=== PATIENT | male | born 1965 | race Caucasian/White ===

== ENCOUNTER 2021-01-16 08:19 | Inpatient (IN) ==
[2021-01-16] MEDS ORDERED: MoRPHine SULFATE 4 MG/ML 1 ML CARP\\VIAL IV STA ×2 (08:38→12:32)
[2021-01-16] MEDS ORDERED: ONDANSETRON INJ 2 MG/ML 2 ML VIAL IV STA (08:38)
--- NOTE | 2021-01-16 08:46 | Emergency Department Note ---
History of Present Illness General Chief complaint: Rib Injury/Pain Stated complaint: RIB PAIN Time Seen by Provider: 01/16/21 08:28 History of Present Illness Maximum Pain Intensity: 7 This is a 55-year-old male that presents to the emergency department via private vehicle accompanied by with complaints of "right-sided rib pain". The patient for the past 3 weeks has been experiencing right sided chest wall/rib pain that is worse with a deep breath. At times it radiates to his back. He denies any known trauma or injury. No chest pain. He denies any fevers, chills, history of SD, history of PE. He notes an outpatient chest x-ray was normal. He did note also a recent tick bite and was given p.o. doxy 2 tablets x 1 and this was removed about 2 weeks ago. Patient denies any history of this. Current pain 03/11. Patient has been using OTC analgesic without relief. Home Medications Medication Instructions Recorded Confirmed Type acetaminophen [Tylenol] 325 mg PO QID PRN 01/16/21 01/16/21 History aspirin 81 mg PO DAILY 01/16/21 01/16/21 History citalopram 20 mg PO DAILY 01/16/21 01/16/21 History gemfibrozil 600 mg PO DAILY 01/16/21 01/16/21 History ibuprofen 200 mg PO Q6H PRN 01/16/21 01/16/21 History lisinopril-hydrochlorothiazide 1 tab PO DAILY 01/16/21 01/16/21 History Allergies Allergy/AdvReac Type Severity Reaction Status Date / Time No Known Allergies Allergy Unverified 01/16/21 09:07 Past Med/Surg History Medical History HLD (hyperlipidemia) HTN (hypertension) Surgical History No pertinent past surgical history Family History Father Heart disease Social History Smoking Status: Former smoker Tobacco Type: Smokeless Tobacco (Dip or Chew) Hx Alcohol Use: No Feels Safe at Home: Yes Review of Systems A total of 10 systems reviewed and were otherwise negative Physical Exam Vital Signs Vital Signs - 24 hr 01/16/21 08:24 01/16/21 09:19 01/16/21 11:29 Temperature 36.2 C L Temperature Source Skin Pulse Rate 75 Pulse Rate [Finger] 78 81 Respiratory Rate 18 18 20 Respiratory Effort / Characteristics Non-Labored Spontaneous Respiratory Depth Normal Blood Pressure 167/87 H Blood Pressure [Left Arm] 149/75 H 140/73 Blood Pressure Mean 113 Blood Pressure Mean [Left Arm] 99 95 Blood Pressure Position Sitting Pulse Oximetry 98 97 96 Oxygen Delivery Method Room Air Room Air Room Air Sepsis Recent Fever Within 48 Hours No Sepsis New/Unexplained Change in Mental Status N/A Sepsis Action Taken by Nursing No Action Required 01/16/21 12:40 01/16/21 13:13 01/16/21 14:05 Temperature Temperature Source Pulse Rate Pulse Rate [Finger] 73 75 86 Respiratory Rate 20 20 20 Respiratory Effort / Characteristics Respiratory Depth Blood Pressure Blood Pressure [Left Arm] 161/94 H 147/86 H 141/98 H Blood Pressure Mean Blood Pressure Mean [Left Arm] 116 106 112 Blood Pressure Position Pulse Oximetry 96 97 95 Oxygen Delivery Method Room Air Room Air Room Air Sepsis Recent Fever Within 48 Hours Sepsis New/Unexplained Change in Mental Status Sepsis Action Taken by Nursing 01/16/21 14:58 Temperature Temperature Source Pulse Rate Pulse Rate [Finger] 72 Respiratory Rate 18 Respiratory Effort / Characteristics Respiratory Depth Blood Pressure Blood Pressure [Left Arm] 130/69 Blood Pressure Mean Blood Pressure Mean [Left Arm] 89 Blood Pressure Position Pulse Oximetry 94 Oxygen Delivery Method Room Air Sepsis Recent Fever Within 48 Hours Sepsis New/Unexplained Change in Mental Status Sepsis Action Taken by Nursing VITAL SIGNS - Vital signs and nursing notes were reviewed. Hypertensive, otherwise stable. GENERAL -55-year-old male appearing his stated age. Communicates well with provider and answers questions appropriately. SKIN - Gross examination of the entire body surface demonstrates no bruising, deformity, meningeal or petechial rash. No herpetic lesion. HEAD - Normocephalic, Atraumatic. EYES - PERRL with EOMI bilaterally. Without subconjunctival hemorrhage. Palpebral conjunctiva pink and moist with no injection. EARS - No deformities of external structures noted on gross examination bilaterally. No hemotympanum present. No tympanic perforation noted. Handle of malleus, umbo, cone of light, pars tensa/flaccid all easily visualized. NOSE - Midline and without cyanosis. No epistaxis or clear watery discharge n oted. Septum midline without deviation. No septal hematoma noted. No overlying ecchymosis noted. MOUTH/OROPHARYNX - Without perioral cyanosis. Tongue midline with equal elevation of palate bilaterally. No blood noted in the oropharynx. No tonsillar hypertrophy, erythema, or exudates noted. No dental fractures noted. NECK - No C-spine tenderness. No nuchal rigidity. No meningismus. LUNGS - Chest wall symmetric without accessory muscle use, intercostals retractions, or central cyanosis. No flail chest or depressed fractures noted. Normal vesicular breath sounds CTA B/L. No wheezes, rales, or rhonchi appreciated. CARDIAC - RRR with S1/S2. No murmur, rubs, or gallops appreciated. ABDOMEN - Abdominal contour normal and without pulsations or visible masses. BS normoactive all four quadrants. No rebound tenderness or guarding noted. Negative [place]'s or Staples Naidu's Signs. No tenderness, palpable masses, hepatosplenomegaly, or ascites noted. EXTREMITIES - No gross deformities noted of the extremities. +5/5 strength noted in UE/LE bilaterally. NEUROLOGIC - Cranial nerves II through XII grossly intact. Sensory intact to light touch throughout. PSYCH - A&Ox3 and cooperates fully with examiner. Pt is very pleasant and interacts well with examiner. Course Administered Medications Discontinued Medications Ioversol (Optiray 350 500ml) 110 ml IV ONCE ONE Stop: 01/16/21 10:16 Last Admin: 01/16/21 10:15 Dose: 110 ml Documented by: [id number] Morphine Sulfate (Morphine Sulfate 4 Mg/Ml 1 Ml Carp\\Vial) 4 mg IV NOW STA Stop: 01/16/21 08:39 Last Admin: 01/16/21 09:16 Dose: 4 mg Documented by: [id number] Morphine Sulfate (Morphine Sulfate 4 Mg/Ml 1 Ml Carp\\Vial) 4 mg IV NOW STA Stop: 01/16/21 12:33 Last Admin: 01/16/21 14:41 Dose: Not Given Documented by: [id number] Ondansetron HCl (Ondansetron Inj 2 Mg/Ml 2 Ml Vial) 4 mg IV NOW STA Stop: 01/16/21 08:39 Last Admin: 01/16/21 09:16 Dose: 4 mg Documented by: [id number] Oxycodone HCl (Oxycodone Hcl Ir 5 Mg Tab (Immediate Release)) 5 mg PO NOW STA Stop: 01/16/21 13:07 Last Admin: 01/16/21 14:41 Dose: Not Given Documented by: [id number] Oxycodone HCl (Oxycodone Hcl Ir 5 Mg Tab (Immediate Release)) Confirm Administered Dose 5 mg .ROUTE .STK-MED ONE Stop: 01/16/21 13:10 Last Admin: 01/16/21 13:11 Dose: 5 mg Documented by: [id number] Medical Decision Making Laboratory Data Result diagrams: 01/16/21 09:09 01/16/21 09:09 Lab Results 01/16/21 01/16/21 01/16/21 Range/Units 09:09 09:09 09:09 WBC 6.81 (4.8-10.8) K/uL RBC 4.62 L (4.7-6.1) M/uL Hgb 12.5 L (14.0-18.0) g/dL Hct 37.9 L (42-52) % MCV 82.0 (80-100) fL MCH 27.1 (25-34) pg MCHC 33.0 (32-36) g/dL RDW Std Deviation 42.8 (36.4-46.3) fL RDW Coeff of Rm 14.4 (11.5-14.5) % Plt Count 252 (130-400) K/uL MPV 9.1 (7.4-10.4) fL Immature Gran % (Auto) 0.3 % Neut % (Auto) 68.8 % Lymph % (Auto) 18.1 % [place] % (Auto) 10.4 % Eos % (Auto) 2.1 % Baso % (Auto) 0.3 % Neut # (Auto) 4.69 (1.4-6.5) K/uL Lymph # (Auto) 1.23 (1.2-3.4) K/uL [place] # (Auto) 0.71 H (0.11-0.59) K/uL Eos # (Auto) 0.14 (0-0.5) K/uL Baso # (Auto) 0.02 (0-0.2) K/uL Immature Gran # (Auto) 0.02 (0.00-0.02) K/uL Sodium 140 (136-145) mmol/L Potassium 4.0 (3.5-5.1) mmol/L Chloride 107 (98-107) mmol/L Carbon Dioxide 26 (21-32) mmol/L Anion Gap 7.0 (3-11) BUN 18 (7-18) mg/dl Creatinine 1.04 (0.6-1.4) mg/dl Est Cr Clr Drug Dosing 92.3 ml/min Est GFR ( Amer) 91.9 ml/min Est GFR (Non-Af Amer) 79.3 ml/min BUN/Creatinine Ratio 17.3 (10-20) Glucose 115 H (70-99) mg/dl Calcium 9.5 (8.5-10.1) mg/dl Magnesium 1.9 (1.8-2.4) mg/dl Total Bilirubin 0.3 (0.2-1) mg/dl AST 13 L (15-37) U/L ALT 16 (12-78) U/L Alkaline Phosphatase 134 H (45-117) U/L Troponin I < 0.015 (0-0.045) ng/ml Total Protein 7.1 (6.4-8.2) gm/dl Albumin 3.1 L (3.4-5.0) gm/dl Globulin 4.0 (2.5-4.0) gm/dl Albumin/Globulin Ratio 0.8 L (0.9-2) Lipase 132 (73-393) U/L Lyme Disease IgG Ab Negative (Negative) Lyme Disease IgM Ab Negative (Negative) COVID-19 Eval Order SARS-CoV-2 (PCR) (Negative) 01/16/21 01/16/21 Range/Units 12:30 12:30 WBC (4.8-10.8) K/uL RBC (4.7-6.1) M/uL Hgb (14.0-18.0) g/dL Hct (42-52) % MCV (80-100) fL MCH (25-34) pg MCHC (32-36) g/dL RDW Std Deviation (36.4-46.3) fL RDW Coeff of Rm (11.5-14.5) % Plt Count (130-400) K/uL MPV (7.4-10.4) fL Immature Gran % (Auto) % Neut % (Auto) % Lymph % (Auto) % [place] % (Auto) % Eos % (Auto) % Baso % (Auto) % Neut # (Auto) (1.4-6.5) K/uL Lymph # (Auto) (1.2-3.4) K/uL [place] # (Auto) (0.11-0.59) K/uL Eos # (Auto) (0-0.5) K/uL Baso # (Auto) (0-0.2) K/uL Immature Gran # (Auto) (0.00-0.02) K/uL Sodium (136-145) mmol/L Potassium (3.5-5.1) mmol/L Chloride (98-107) mmol/L Carbon Dioxide (21-32) mmol/L Anion Gap (3-11) BUN (7-18) mg/dl Creatinine (0.6-1.4) mg/dl Est Cr Clr Drug Dosing ml/min Est GFR ( Amer) ml/min Est GFR (Non-Af Amer) ml/min BUN/Creatinine Ratio (10-20) Glucose (70-99) mg/dl Calcium (8.5-10.1) mg/dl Magnesium (1.8-2.4) mg/dl Total Bilirubin (0.2-1) mg/dl AST (15-37) U/L ALT (12-78) U/L Alkaline Phosphatase (45-117) U/L Troponin I (0-0.045) ng/ml Total Protein (6.4-8.2) gm/dl Albumin (3.4-5.0) gm/dl Globulin (2.5-4.0) gm/dl Albumin/Globulin Ratio (0.9-2) Lipase (73-393) U/L Lyme Disease IgG Ab (Negative) Lyme Disease IgM Ab (Negative) COVID-19 Eval Order Covid19 at [facility] SARS-CoV-2 (PCR) NEGATIVE (Negative) Imaging Data Radiologist's Impression: Abdomen/Pelvis CT 01/16/21 08:39 CT SCAN OF THE ABDOMEN AND PELVIS WITH IV CONTRAST CLINICAL HISTORY: Right upper quadrant abdominal pain COMPARISON STUDY: No priors. TECHNIQUE: Following the IV administration of 110 cc of Optiray 350, CT scan of the abdomen and pelvis is performed from the lung bases to the proximal femora. Images are reviewed in the axial, sagittal, and coronal planes. IV contrast was administered without complication. A dose lowering technique was utilized adhering to the principles of ALARA. FINDINGS: Lung bases: The heart is normal in size and without pericardial effusion. The lung bases are clear noting dependent atelectasis. A small hiatal hernia is noted. Mildly enlarged lymph nodes at the esophageal hiatus measure up to 1.0 cm. Liver: The contrast-enhanced liver is top normal in size. The liver demonstrates diffusely diminished attenuation consistent with hepatic steatosis. There is no intrahepatic biliary ductal dilatation. The hepatic veins and portal veins are patent. There is a 2.7 cm lesion in the left lobe of liver seen on image #71. This demonstrates foci of peripheral discontinuous nodular enhancement, and although incompletely characterized the appearance favors a hemangioma. Gallbladder: There are numerous calcified gallstones without CT evidence of acute cholecystitis. Spleen: The spleen is mildly enlarged measuring 14.4 cm in length. Pancreas: Unremarkable. Adrenal glands: Unremarkable. Kidneys: The contrast enhanced kidneys are normal in size and without hydronephrosis. The kidneys enhance symmetrically. Abdominal vasculature: The abdominal aorta is normal in course and caliber noting moderate atherosclerotic calcification. Stomach and bowel: The gastric wall appears thickened and featureless. Small lymph nodes along the greater curvature of the stomach measure up to 9 mm. There is mild colonic diverticulosis without CT evidence of acute diverticulitis. No bowel obstruction is seen. The appendix is well-visualized and normal. Peritoneum: There is nonspecific soft tissue infiltration in the upper abdomen and along the mesentery with trace fluid. No intraperitoneal free air is identified. Trace free fluid is seen in the pelvis. There is a fat-containing umbilical hernia. Lymphadenopathy: There are enlarged upper abdominal lymph nodes. A celiac node on image #79 measures 2.3 x 1.2 cm. An enlarged left periaortic node on image #170 measures 1.8 x 1.3 cm. No additional enlarged retroperitoneal lymph nodes are identified. Pelvic viscera: The bladder, prostate, and seminal vesicles are normal as visualized. Skeletal structures: There is an osteolytic lesion identified in the body of T11 with an inferior endplate compression deformity. There is a subtle destructive lesion within the right lateral 8th rib with associated pathologic fracture. No additional destructive bony lesions are clearly identified. IMPRESSION: 1. Findings are consistent with metastatic disease. 2. There are destructive bony lesions within the right lateral 8th rib and body of T11 with associated pathologic fractures. 3. There are pathologically enlarged lymph nodes in the upper abdomen, inferior mediastinum, and left periaortic region. 4. The gastric wall appears thickened and featureless. Although not well evaluated by CT, a primary gastric neoplasm is a strong differential consideration. Correlate with endoscopy. 5. A 2.7 cm left hepatic lobe lesion is incompletely characterized but favors a hemangioma. This could be further assessed with a nonemergent dedicated CT or MRI of the liver. 6. Cholelithiasis. 7. Hepatic steatosis. 8. Additional findings as above. ACT 112: Positive. There are findings on this exam that require communication between the performing entity and the patient following Patient Test Result Information Act ([place] Act 112) guidelines. Electronically signed by: Chas Champion M.D. 01/16/2021 10:45 AM Chest CTA 01/16/21 08:39 CT ANGIOGRAPHY OF THE CHEST, PULMONARY EMBOLUS PROTOCOL CLINICAL HISTORY: R lateral/anterior rib pain/RUQ pain into back COMPARISON STUDY: Chest radiograph January 21, 2013. TECHNIQUE: Following IV administration of 110 mL of Optiray, helical axial images of the chest were obtained utilizing the pulmonary embolus protocol. Maximal intensity projections and sagittal and coronal reformats were viewed on an independent 3D workstation. IV contrast was administered without complication. Automated exposure control was utilized for the study. A dose lowering technique was utilized adhering to the principles of ALARA. CT DOSE: 1518.90 mGycm FINDINGS: No pulmonary emboli are identified. There is no thoracic aortic dissection. Mild cardiomegaly is noted. There is no pericardial effusion. Note is made of a few prominent asymmetrically enlarged right supraclavicular lymph nodes that measure up to 9 mm in short axis diameter. There is mild mediastinal and bilateral hilar lymphadenopathy. Numerous mildly enlarged lymph nodes are noted. Index left hilar node measures 2.4 x 1.5 cm. Index subcarinal node measures 1.6 x 1.6 cm. Index right hilar node measures 1.8 x 1.5 cm. A few perifissural right lung nodules measure up to 6 mm. These are likely benign. Th ere is no pneumothorax or pleural effusion. Note is made of a lytic lesion within the T11 vertebral body that measures 2 cm. There is associated pathologic fracture involving the inferior endplate of this vertebral body. No retropulsion. No epidural extension is identified. Note is also made of subtle lucency and sclerosis within the lateral right eighth rib with suspected pathologic fracture. The abdomen and pelvis will be reported separately. IMPRESSION: 1. No pulmonary emboli identified. 2. Multiple mildly enlarged mediastinal and bilateral hilar lymph nodes. In addition, 2 cm lytic lesion within T11 with pathologic fracture and a suspected right eighth rib lesion with pathologic fracture. These findings are highly suggestive of a neoplastic process and favor metastatic disease. ACT 112: Positive. There are findings on this exam that require communication between the performing entity and the patient following Patient Test Result Information Act ([place] Act 112) guidelines. Electronically signed by: Bobo Crespo M.D. 01/16/2021 10:37 AM MDM Narrative Patient was seen and evaluated as above in room B03. Review was performed of nursing notes and vital signs. I did review pertinent previous visits and patient history. After obtaining a thorough history and physical examination the above work up was performed. Patient presents to us today with atraumatic right anterior/lateral rib pain that at times in the right upper quadrant as well as radiates to the back. Patient does appear to be in pain on exam. Current pain 7/10. This is not reproducible on my exam. Options of care were discussed with the patient. IV access was established. Labs were drawn. No leukocytosis. There is anemia with hemoglobin at 12.5. No emergent metabolic disturbance. Troponin negative. Lyme testing negative. EKG was obtained and reveals normal sinus rhythm rate of [address] elevation. QTc 425. QRS 86. Imaging was obtained of the chest, abdomen and pelvis given presentation, level of pain and persistence of symptoms. Results as above. Unfortunately there appears to be findings consistent with metastatic disease and pathologic fractures. I did discuss these findings with the patient and at bedside. I do believe that further evaluation and management inpatient setting would be reasonable noting his level of pain paired with decreased appetite and findings here today. Case discussed with the hospitalist. I also spoke with Ebonie ROWE CRNP. Patient will be tentatively scheduled for an EGD tomorrow. He will be n.p.o. after midnight. IV analgesics were given. Please refer to further documentation regarding his stay. Case was discussed with the attending physician, and we discussed options of care with the patient at bedside. GCS: 15 In the evaluation and treatment of this patient the following differential diagnoses were entertained: Fracture, dislocation, subluxation, contusion, acute cholecystitis, cholangitis, malignancy, among others. Impression & Plan Right-sided chest wall pain, Pathologic rib fracture, Pathologic thoracic fracture, Rib pain on right side, Back pain, Abnormal CT scan, chest, Abnormal CT of the abdomen Discharge Plan Visit Data Chief Complaint: Rib Injury/Pain Stated Complaint: RIB PAIN ED Provider: Dave Holder ED Midlevel Provider: Polo Levy Discharge Problem: Right-sided chest wall pain, Pathologic rib fracture, Pathologic thoracic fracture, Rib pain on right side, Back pain, Abnormal CT scan, chest, Abnormal CT of the abdomen Patient Disposition: Admitted As Inpatient Condition: Good Forms Stand Alone Forms: [facility], [facility] Emergency Department, Important Visit Information Prescriptions Prescriptions: No Action acetaminophen [Tylenol] 325 mg Tablet 325 mg PO QID PRN (Reason: Pain) RF: 0 aspirin 81 mg Tablet,Delayed Release (Dr/Ec) 81 mg PO DAILY RF: 0 citalopram 20 mg tablet 20 mg PO DAILY RF: 0 ibuprofen 200 mg Tablet 200 mg PO Q6H PRN (Reason: Pain) RF: 0 lisinopril-hydrochlorothiazide 20-25 mg tablet 1 tab PO DAILY RF: 0 gemfibrozil 600 mg Tablet 600 mg PO DAILY RF: 0 Referrals Referrals: Aristeo Spencer MD [Primary Care Provider] -
[2021-01-16 09:20] LABS: Basophils # (auto) 0.02 K/uL (0-0.2); Basophils % (auto) 0.3 %; Eosinophils # (auto) 0.14 K/uL (0-0.5); Eosinophils % (auto) 2.1 %; Hematocrit (blood only) 37.9 % (42-52); Hemoglobin 12.5 g/dL (14.0-18.0); Immature Granulocytes # (auto) 0.02 K/uL (0.00-0.02); Immature Granulocytes % (auto) 0.3 %; Lymphocytes # (auto) 1.23 K/uL (1.2-3.4); Lymphocytes % (auto) 18.1 %; Mean Corpuscular Hemoglobin 27.1 pg (25-34); Mean Platelet Volume 9.1 fL (7.4-10.4); Monocytes # (auto) 0.71 K/uL (0.11-0.59); Monocytes % (auto) 10.4 %; Neutrophils # (auto) 4.69 K/uL (1.4-6.5); Neutrophils % (auto) 68.8 %; Platelet Count 252 K/uL (130-400); RDW Coefficient of Variation 14.4 % (11.5-14.5); RDW Standard Deviation 42.8 fL (36.4-46.3); Red Blood Count 4.62 M/uL (4.7-6.1); White Blood Count 6.81 K/uL (4.8-10.8)
[2021-01-16 09:44] LABS: Albumin Level 3.1 gm/dl (3.4-5.0); Aspartate Aminotransferase 13 U/L (15-37); BUN Creatinine Ratio 17.3 (10-20); Blood Urea Nitrogen 18 mg/dl (7-18); Calcium 9.5 mg/dl (8.5-10.1); Carbon Dioxide 26 mmol/L (21-32); Chloride 107 mmol/L (98-107); Creatinine Clr Calc Pharmacy 92.3 ml/min; Est GFR (African American) 91.9 ml/min; Est GFR (Non-African American) 79.3 ml/min; Glucose 115 mg/dl (70-99); Lipase 132 U/L (73-393); Magnesium 1.9 mg/dl (1.8-2.4); Sodium 140 mmol/L (136-145)
[2021-01-16 09:49] LABS: Alanine Aminotransferase 16 U/L (12-78); Albumin Globulin Ratio 0.8 (0.9-2); Alkaline Phosphatase 134 U/L (45-117); Bilirubin,Total 0.3 mg/dl (0.2-1); Total Protein 7.1 gm/dl (6.4-8.2); Troponin I < 0.015 ng/ml (0-0.045)
[2021-01-16] MEDS ORDERED: OPTIRAY 350 500ml IV ONE (10:15)
[2021-01-16 10:26] LABS: Lyme Ab IgG w/WB Rflx Negative (Negative)
[2021-01-16 10:27] LABS: Lyme Ab IgM w/WB Rflx Negative (Negative)
--- NOTE | 2021-01-16 10:38 | CT Scan Report ---
CT ANGIOGRAPHY OF THE CHEST, PULMONARY EMBOLUS PROTOCOL CLINICAL HISTORY: R lateral/anterior rib pain/RUQ pain into back COMPARISON STUDY: Chest radiograph January 21, 2013. TECHNIQUE: Following IV administration of 110 mL of Optiray, helical axial images of the chest were o btained utilizing the pulmonary embolus protocol. Maximal intensity projections and sagittal and cor onal reformats were viewed on an independent 3D workstation. IV contrast was administered without co mplication. Automated exposure control was utilized for the study. A dose lowering technique was ut ilized adhering to the principles of ALARA. CT DOSE: 1518.90 mGycm FINDINGS: No pulmonary emboli are identified. There is no thoracic aortic dissection. Mild cardiomeg dana is noted. There is no pericardial effusion. Note is made of a few prominent asymmetrically enlarg ed right supraclavicular lymph nodes that measure up to 9 mm in short axis diameter. There is mild me diastinal and bilateral hilar lymphadenopathy. Numerous mildly enlarged lymph nodes are noted. Index left hilar node measures 2.4 x 1.5 cm. Index subcarinal node measures 1.6 x 1.6 cm. Index right hilar node measures 1.8 x 1.5 cm. A few perifissural right lung nodules measure up to 6 mm. These are like ly benign. There is no pneumothorax or pleural effusion. Note is made of a lytic lesion within the T1 1 vertebral body that measures 2 cm. There is associated pathologic fracture involving the inferior e ndplate of this vertebral body. No retropulsion. No epidural extension is identified. Note is also ma de of subtle lucency and sclerosis within the lateral right eighth rib with suspected pathologic frac ture. The abdomen and pelvis will be reported separately. IMPRESSION: 1. No pulmonary emboli identified. 2. Multiple mildly enlarged mediastinal and bilateral hilar lymph nodes. In addition, 2 cm lytic les ion within T11 with pathologic fracture and a suspected right eighth rib lesion with pathologic fract ure. These findings are highly suggestive of a neoplastic process and favor metastatic disease. ACT 112: Positive. There are findings on this exam that require communication between the performing entity and the patient following Patient Test Result Information Act ([place] Act 112) guidelines. Electronically signed by: Bobo Crespo M.D. 01/16/2021 10:37 AM
--- NOTE | 2021-01-16 10:47 | CT Scan Report ---
CT SCAN OF THE ABDOMEN AND PELVIS WITH IV CONTRAST CLINICAL HISTORY: Right upper quadrant abdominal pain COMPARISON STUDY: No priors. TECHNIQUE: Following the IV administration of 110 cc of Optiray 350, CT scan of the abdomen and pelv is is performed from the lung bases to the proximal femora. Images are reviewed in the axial, sagitta l, and coronal planes. IV contrast was administered without complication. A dose lowering technique w as utilized adhering to the principles of ALARA. FINDINGS: Lung bases: The heart is normal in size and without pericardial effusion. The lung bases are clear no ting dependent atelectasis. A small hiatal hernia is noted. Mildly enlarged lymph nodes at the esopha geal hiatus measure up to 1.0 cm. Liver: The contrast-enhanced liver is top normal in size. The liver demonstrates diffusely diminished attenuation consistent with hepatic steatosis. There is no intrahepatic biliary ductal dilatation. T he hepatic veins and portal veins are patent. There is a 2.7 cm lesion in the left lobe of liver seen on image #71. This demonstrates foci of peripheral discontinuous nodular enhancement, and although i ncompletely characterized the appearance favors a hemangioma. Gallbladder: There are numerous calcified gallstones without CT evidence of acute cholecystitis. Spleen: The spleen is mildly enlarged measuring 14.4 cm in length. Pancreas: Unremarkable. Adrenal glands: Unremarkable. Kidneys: The contrast enhanced kidneys are normal in size and without hydronephrosis. The kidneys enh ance symmetrically. Abdominal vasculature: The abdominal aorta is normal in course and caliber noting moderate atheroscle rotic calcification. Stomach and bowel: The gastric wall appears thickened and featureless. Small lymph nodes along the gr eater curvature of the stomach measure up to 9 mm. There is mild colonic diverticulosis without CT ev idence of acute diverticulitis. No bowel obstruction is seen. The appendix is well-visualized and no rmal. Peritoneum: There is nonspecific soft tissue infiltration in the upper abdomen and along the mesenter y with trace fluid. No intraperitoneal free air is identified. Trace free fluid is seen in the pelvis . There is a fat-containing umbilical hernia. Lymphadenopathy: There are enlarged upper abdominal lymph nodes. A celiac node on image #79 measures 2.3 x 1.2 cm. An enlarged left periaortic node on image #170 measures 1.8 x 1.3 cm. No additional enl arged retroperitoneal lymph nodes are identified. Pelvic viscera: The bladder, prostate, and seminal vesicles are normal as visualized. Skeletal structures: There is an osteolytic lesion identified in the body of T11 with an inferior end plate compression deformity. There is a subtle destructive lesion within the right lateral 8th rib wi th associated pathologic fracture. No additional destructive bony lesions are clearly identified. IMPRESSION: 1. Findings are consistent with metastatic disease. 2. There are destructive bony lesions within the right lateral 8th rib and body of T11 with associate d pathologic fractures. 3. There are pathologically enlarged lymph nodes in the upper abdomen, inferior mediastinum, and left periaortic region. 4. The gastric wall appears thickened and featureless. Although not well evaluated by CT, a primary g astric neoplasm is a strong differential consideration. Correlate with endoscopy. 5. A 2.7 cm left hepatic lobe lesion is incompletely characterized but favors a hemangioma. This coul d be further assessed with a nonemergent dedicated CT or MRI of the liver. 6. Cholelithiasis. 7. Hepatic steatosis. 8. Additional findings as above. ACT 112: Positive. There are findings on this exam that require communication between the performing entity and the patient following Patient Test Result Information Act ([place] Act 112) guidelines. Electronically signed by: Chas Champion M.D. 01/16/2021 10:45 AM
[2021-01-16] MEDS ORDERED: oxyCODONE HCL IR 5 MG TAB (IMMEDIATE RELEASE) PO STA (13:06)
[2021-01-16] MEDS ORDERED: oxyCODONE HCL IR 5 MG TAB (IMMEDIATE RELEASE) ONE (13:09)
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
--- NOTE | 2021-01-16 13:43 | Communication Note ---
Date of Service: January 16, 2021
[2021-01-16 15:13] LABS: Appearance Urine Clear (Clear); Bilirubin Urine Negative (Negative); Blood Urine Negative (Negative); Color Urine Yellow; Glucose Urine UA Negative (Negative); Ketones Urine Negative (Negative); Leukocyte Esterase Urine Negative (Negative); Nitrite Urine Negative (Negative); Protein Urine Negative (Negative); Specific Gravity Urine > 1.045 (1.000-1.030); Urobilinogen Urine Negative (Negative); pH Urine 7.5 (4.5-7.5)
[2021-01-16] MEDS ORDERED: ONDANSETRON INJ 2 MG/ML 2 ML VIAL IV PRN (15:58)
[2021-01-16] MEDS ORDERED: oxyCODONE HCL IR 5 MG TAB (IMMEDIATE RELEASE) PO PRN (15:58)
[2021-01-16] MEDS ORDERED: ACETAMINOPHEN 325 MG TAB PO PRN (15:58)
[2021-01-16] MEDS ORDERED: MoRPHine SULFATE 4 MG/ML 1 ML CARP\\VIAL IV PRN (15:58)
--- NOTE | 2021-01-16 17:59 | Electrocardiogram Report ---
Test Reason : Blood Pressure : / mmHG Vent. Rate : 071 BPM Atrial Rate : 071 BPM P-R Int : 138 ms QRS Dur : 086 ms QT Int : 392 ms P-R-T Axes : 044 060 043 degrees QTc Int : 425 ms Normal sinus rhythm Normal ECG When compared with ECG of 21-JAN-2013 11:59, T wave inversion no longer evident in Inferior leads Confirmed by Jose Joshua ([id number]) on 01/16/2021 5:59:17 PM Referred By: REFERRED SELF Confirmed By:Nilesh Joshua
[2021-01-16] MEDS: SODIUM CHLORIDE 0.9% 1000ML 1,000 ML IV SCH (23:43)
--- NOTE | 2021-01-17 07:07 | Gastrointestinal Consultation ---
Date of Consultation January 17, 2021 Assessment & Plan (1) Abnormal CT of the abdomen: (2) Abnormal CT scan, chest: Pt is a 55 y/o male who presented w R rib and RUQ abd pain symptoms, found to be mildly anemic and w CT chest, abd/pelvis findings of multiple lymphadenopathies, pathologic fractures in T11, R eight rib, gastric wall thickening - overall concerning for metastatic malignancy process with primary gastric malignancy suspected. 2.7cm L liver lesion favors hemangioma - Keep NPO - EGD w Dr. Miramontes today - Obtain Liver MRI to r/o HCC Supervising Physician Co-Signing Physician Notes I have seen and examined the patient with ORALIA Rascon whose note reflects our findings and plan. Patient with abnormal CT. Came in for right rib pain. No melena or nausea or epig pain. EGd today History of Present Illness Reason for Consultation: Concern for gastric malignancy Requesting Physician: Dr. Lisbeth Silva Attending Physician: Dr. Rosy Miramontes History of Present Illness Pt is a 55 y/o male w PMHx of HTN, hyperlipidemia who presented to ED yesterday w c/o R sided rib and RUQ abd pain symptom x 2 weeks. He recalled working on 's car and felt a popping sensation on R rib when twisting kirit. Rib xray by PCP unremarkable but then pain progresses. He has associated lower appetite but no significant weight loss. Denies fever, chills, CP, SOB, n/v, bowel habit changes. Upon evaluation, lab showed mild anemia w H/H 12/37. Chem panel including LFTs, lipase normal. CT abd/pelvis and CTA chest w concerning findings of metastatic malignancy - multiple lymphadenopathies noted w also 2cm lytic lesion within T11 w fracture, fracture of R eight rib lesion. 2.7cm L hepatic lobe lesion favoring hemangioma. Gastric wall thickened, primary gastric neoplasm suspected. He denies family hx of GI malignancies Prior EGD years ago (no records) for heartburn. Never had colonoscopy before + chews snuff, no ETOH, NSAIDs, illicit drugs Allergies Allergy/AdvReac Type Severity Reaction Status Date / Time No Known Allergies Allergy Unverified 01/16/21 09:07 Home Medications Medication Instructions Recorded Confirmed Type acetaminophen [Tylenol] 325 mg PO QID PRN 01/16/21 01/16/21 History aspirin 81 mg PO DAILY 01/16/21 01/16/21 History citalopram 20 mg PO DAILY 01/16/21 01/16/21 History gemfibrozil 600 mg PO DAILY 01/16/21 01/16/21 History ibuprofen 200 mg PO Q6H PRN 01/16/21 01/16/21 History lisinopril-hydrochlorothiazide 1 tab PO DAILY 01/16/21 01/16/21 History Patient History Medical History HLD (hyperlipidemia) HTN (hypertension) Surgical History No pertinent past surgical history Family History Father Heart disease Social History Smoking Status: Former smoker Tobacco Type: Smokeless Tobacco (Dip or Chew) Second Hand Exposure: No; Do You Dip or Chew Tobacco: Yes; Tobacco Cessation Education Requested by Patient: No Hx Alcohol Use: No Preferred Language: [place]ian Communication Ability: Effective Food Order Expediter Required: No Beliefs That Will Affect Care: None Current Living Situation: Spouse Other Information That Helps Us Care for You: No Feels Safe at Home: Yes Safety Concerns: Feels Safe At This Time Assistive Devices: None Assistive Devices Comment: reading glasses only Review of Systems Review of Systems: All systems reviewed & are unremarkable except as noted in HPI & below Physical Exam Constitutional: WD/WN, vitals as above well groomed, cooperative and comfortable Eyes: PERRL, conjunctivae normal, anicteric sclerae ENMT: external ear and nose normal, oropharynx normal Respiratory: normal respiratory effort, lungs clear to auscultation Cardiovascular: RRR, no murmur, no edema Gastrointestinal (Abdomen): normal bowel sounds, soft, nontender, no hepatosplenomegaly Skin: no rashes, warm and dry no jaundice Neurologic: Motor/Sensory: no asterixis Psychiatric: A+Ox3, euthymic affect Lymphatic: no lymphedema Results & Data ([facility]) Vital Signs (Past 12 Hours) Vital Signs Temp Pulse Resp BP Pulse Ox 01/17/21 06:48 36.8 C 63 18 121/77 95 01/17/21 03:58 36.7 C 73 20 127/74 92 01/16/21 23:25 36.6 C 84 20 139/93 97 01/16/21 19:43 36.9 C 73 18 152/77 H 95
[2021-01-17 07:45] LABS: Hematocrit (blood only) 37.9 % (42-52); Hemoglobin 12.4 g/dL (14.0-18.0); Mean Corpuscular Hemoglobin 27.6 pg (25-34); Mean Corpuscular Hgb Conc 32.7 g/dL (32-36); Mean Corpuscular Volume 84.2 fL (80-100); Mean Platelet Volume 8.9 fL (7.4-10.4); Platelet Count 246 K/uL (130-400); RDW Coefficient of Variation 14.4 % (11.5-14.5); RDW Standard Deviation 44.3 fL (36.4-46.3); White Blood Count 6.54 K/uL (4.8-10.8)
[2021-01-17 08:15] LABS: BUN Creatinine Ratio 11.9 (10-20); Calcium 9.2 mg/dl (8.5-10.1); Creatinine Clr Calc Pharmacy 98.9 ml/min; Est GFR (Non-African American) 86.3 ml/min; Potassium 4.1 mmol/L (3.5-5.1)
[2021-01-17] MEDS ORDERED: LIDOCAINE 2% 2 ML VIAL/AMP(20MG/ML) INFIL ONE (08:18)
[2021-01-17] MEDS ORDERED: PROPOFOL IV EMULSION 10 MG/ML 20 ML VIAL IV ONE (08:18)
[2021-01-17] MEDS: gemfibroziL 600 MG TAB PO SCH (08:22)
[2021-01-17] MEDS: CITALOPRAM 20 MG TAB PO SCH (08:22)
[2021-01-17 08:23] LABS: Albumin Globulin Ratio 0.8 (0.9-2); Bilirubin,Total 0.5 mg/dl (0.2-1); Globulin 3.8 gm/dl (2.5-4.0); Total Protein 6.8 gm/dl (6.4-8.2)
[2021-01-17] MEDS: LISINOPRIL/HCTZ 20/25MG 1 TAB PO SCH (08:23)
--- NOTE | 2021-01-17 08:45 | Anesthesiology Consultation ---
Date of Service January 17, 2021 Assessment & Plan (1) Encounter for pre-operative examination: Chart Review Chart Review: Acceptable Risk for Surgery and Patient NOT seen in Pre Admission Testing Consults Requested none ASA ASA4 Proposed Anesthesia Anesthesia Type: MAC Risk / Benefits Reviewed With: PT / POA / Parent / Guardian, Accepts Plan and Informed Consent Obtained History Surgery Operation Date: 01/17/21 16:00 Proposed Procedures p Esophagogastroduodenoscopy Dr Miramontes - Rosy Miramontes, DO Height/Weight Height: 5 ft 10 in Weight: 98.6 kg Allergies Allergy/AdvReac Type Severity Reaction Status Date / Time No Known Allergies Allergy Unverified 01/16/21 09:07 Medications Home Medications Medication Instructions Recorded Confirmed Last Taken acetaminophen [Tylenol] 325 mg PO QID PRN 01/16/21 01/16/21 01/16/21 06:25 650 mg aspirin 81 mg PO DAILY 01/16/21 01/16/21 01/16/21 citalopram 20 mg PO DAILY 01/16/21 01/16/21 01/16/21 gemfibrozil 600 mg PO DAILY 01/16/21 01/16/21 Unknown ibuprofen 200 mg PO Q6H PRN 01/16/21 01/16/21 01/16/21 07:00 400 mg lisinopril-hydrochlorothiazide 1 tab PO DAILY 01/16/21 01/16/21 01/16/21 Active Medications Generic Name Dose Route Start Last Admin Trade Name Freq PRN Reason Stop Dose Admin Citalopram Hydrobromide 20 mg 01/17/21 09:00 01/17/21 08:22 Citalopram 20 Mg Tab PO 02/16/21 08:59 Not Given DAILY INGRID Gemfibrozil 600 mg 01/17/21 09:00 01/17/21 08:22 Gemfibrozil 600 Mg Tab PO 02/16/21 08:59 Not Given DAILY INGRID Lisinopril/HCTZ 1 tab 01/17/21 09:00 01/17/21 08:23 Lisinopril/Hctz 20/25mg 1 Tab PO 02/16/21 08:59 Not Given DAILY INGRID Sodium Chloride 1,000 mls @ 80 mls/hr 01/16/21 23:30 01/17/21 08:23 Nss 1000ml IV 02/15/21 23:29 0 mls/hr .[id number] INGRID Infusion Morphine Sulfate 4 mg 01/16/21 15:58 01/17/21 06:38 Morphine Sulfate 4 Mg/Ml 1 Ml Carp\Vial IV 01/30/21 15:57 4 mg Q4H PRN Administration Severe Pain Oxycodone HCl 5 mg 01/16/21 15:58 01/16/21 22:06 Oxycodone Hcl Ir 5 Mg Tab (Immediate Release) PO 01/30/21 15:57 5 mg Q6H PRN Administration Moderate Pain NPO Date Last Intake of Fluids: 01/17/21 Time Last Intake of Fluids: 06:00 Date Last Intake of Solids: 01/16/21 Time Last Intake of Solids: 16:00 Past Medical History Medical History HLD (hyperlipidemia) HTN (hypertension) Exercise / Class Metabolic Activity II 4-5 Yardwork/Stairs/Walk up hill Past Family History Family History Father Heart disease Past Surgical History Surgical History No pertinent past surgical history Past Anesthesia History No Hx of Anesthesia Complications and No Family Hx of Anesthesia Complications History of PONV No Hx of PONV and No Hx of Motion Sickness Social History Smoking Status: Former smoker tobacco type: smokeless tobacco Do You Dip or Chew Tobacco: Yes Hx Alcohol Use: No substance use type: does not use Physical Exam Vital Signs Last Vital Signs Temp 37.0 C 01/17/21 08:27 Pulse 66 01/17/21 08:27 Resp 16 01/17/21 08:27 BP 148/85 H 01/17/21 08:27 Pulse Ox 96 01/17/21 08:27 ENMT Mouth: no dentition abnormality Thyromental Distance: > or= 3.5 Finger Breadths Mallampati Class: II Neck normal visual inspection Respiratory normal respiratory effort Auscultation: lungs clear to auscultation bilaterally Cardiovascular Rate/Rhythm: regular rate and regular rhythm Psychiatric Orientation: alert Lab Results Anesthesia Preop Results Results Anesthesia Widget: WBC 6.54 K/uL (4.8-10.8) 01/17/21 Hgb 12.4 g/dL (14.0-18.0) L 01/17/21 Hct 37.9 % (42-52) L 01/17/21 Plt 246 K/uL (130-400) 01/17/21 Na 137 mmol/L (136-145) 01/17/21 K 4.1 mmol/L (3.5-5.1) 01/17/21 Cl 103 mmol/L (98-107) 01/17/21 CO2 28 mmol/L (21-32) 01/17/21 BUN 12 mg/dl (7-18) 01/17/21 Creat 0.97 mg/dl (0.6-1.4) 01/17/21 Glucose Level 99 mg/dl (70-99) 01/17/21 Urine Color Yellow 01/16/21 Urine Appearance Clear (Clear) 01/16/21 Urine pH 7.5 (4.5-7.5) 01/16/21 Urine Specific [place] > 1.045 (1.000-1.030) H 01/16/21 Urine Protein Negative (Negative) 01/16/21 Urine Glucose (UA) Negative (Negative) 01/16/21 Urine Ketones Negative (Negative) 01/16/21 Urine Blood Negative (Negative) 01/16/21 Urine Nitrite Negative (Negative) 01/16/21 Urine Bilirubin Negative (Negative) 01/16/21 Urine Urobilinogen Negative (Negative) 01/16/21 Urine Leukocyte Esterase Negative (Negative) 01/16/21 COVID-19 PCR NEGATIVE (Negative) 01/16/21 Testing Laboratory Results 01/17/21 07:31 01/17/21 07:31 Urine Color Yellow 01/16/21 14:30 Urine Appearance Clear (Clear) 01/16/21 14:30 Urine pH 7.5 (4.5-7.5) 01/16/21 14:30 Ur Specific [place] > 1.045 (1.000-1.030) H 01/16/21 14:30 Urine Protein Negative (Negative) 01/16/21 14:30 Urine Glucose (UA) Negative (Negative) 01/16/21 14:30 Urine Ketones Negative (Negative) 01/16/21 14:30 Urine Nitrite Negative (Negative) 01/16/21 14:30 Ur Leukocyte Esterase Negative (Negative) 01/16/21 14:30
--- NOTE | 2021-01-17 09:12 | GI REPORT ---
Patient Name: Cecil Casillas Procedure Date: 01/17/2021 8:46 AM Date of : 1965 Admit Type: Inpatient Age: 55 Gender: Male Attending MD: Rosy Miramontes DO Procedure: Upper GI endoscopy Providers: Rosy Miramontes DO Referring MD: Lisbeth Silva Md, Margaret Loomis Indications: Iron deficiency anemia, Abnormal CT of the GI tract Medicines: Propofol per Anesthesia Complications: No immediate complications. Estimated blood loss: Minimal. Estimated Blood Loss: Estimated blood loss was minimal. Procedure: Pre-Anesthesia Assessment: - Prior to the procedure, a History and Physical was performed, and patient medications, allergies and sensitivities were reviewed. The patient's tolerance of previous anesthesia was reviewed. - The risks and benefits of the procedure and the sedation options and risks were discussed with the patient. All questions were answered and informed consent was obtained. - Patient identification and proposed procedure were verified prior to the procedure by the physician and the nurse. The procedure was verified in the pre-procedure area in the procedure room. - Mental Status Examination: alert and oriented. Airway Examination: normal oropharyngeal airway and neck mobility. Respiratory Examination: clear to auscultation. CV Examination: normal. Abdominal Examination: bowel sounds present, abdomen soft and non-tender, no masses or organomegaly noted. - ASA Grade Assessment: II - A patient with mild systemic disease. After obtaining informed consent, the endoscope was passed under direct vision. Throughout the procedure, the patient's blood pressure, pulse, and oxygen saturations were monitored continuously. The Endoscope was introduced through the mouth, and advanced to the third part of duodenum. The upper GI endoscopy was accomplished without difficulty. The patient tolerated the procedure well. Findings: The esophagus was normal. Segmental mucosal changes characterized by congestion, erythema and ulceration were found in the gastric body. Biopsies were taken with a cold forceps for histology. Verification of patient identification for the specimen was done by the physician and nurse using the patient's name and date. Estimated blood loss was minimal. The examined duodenum was normal. Impression: - Normal esophagus. - Diffusely congested, erythematous and ulcerated mucosa in the gastric body. The antrum appears normal in comparison. The abnormal mucosa was biopsied. - Normal examined duodenum. Recommendation: - Await pathology results. - Use a proton pump inhibitor PO BID. - [facility] care. Possible discharge. - Advance diet to regular at the discretion of the primary service. Rosy Miramontes D.O. Rosy Miramontes, 01/17/2021 9:11:45 AM This report has been signed electronically. Note Initiated On: 01/17/2021 8:46 AM Number of Addenda: 0 I attest to the content of the Intraoperative Record and orders documented therein, exceptions below {[id number]}
--- NOTE | 2021-01-17 11:28 | Anesthesiology Progress Note ---
Date of Service January 17, 2021 Anesthesia Post Procedure Vital Signs Vital Signs: Temp Pulse Pulse Resp BP BP Pulse Ox 01/17/21 09:30 65 20 116/77 93 01/17/21 09:17 76 20 125/80 94 01/17/21 09:04 71 18 108/56 L 93 01/17/21 08:27 37.0 C 66 16 148/85 H 96 01/17/21 06:48 36.8 C 63 18 121/77 95 01/17/21 03:58 36.7 C 73 20 127/74 92 01/16/21 23:25 36.6 C 84 20 139/93 97 01/16/21 19:43 36.9 C 73 18 152/77 H 95 01/16/21 16:01 36.7 C 68 18 157/79 H 94 01/16/21 15:58 36.7 C 68 18 157/79 H 94 01/16/21 15:41 77 18 126/73 95 01/16/21 14:58 72 18 130/69 94 01/16/21 14:05 86 20 141/98 H 95 01/16/21 13:13 75 20 147/86 H 97 01/16/21 12:40 73 20 161/94 H 96 01/16/21 11:29 81 20 140/73 96 Pain Intensity Ribs: Pain Intensity: 2 Abdomen: Pain Intensity: 3 Transfer of Care Handoff Completed per policy Notes Mental Status: alert / awake / arousable Patient Amnestic to Procedure: Yes Nausea / Vomiting: adequately controlled Pain: adequately controlled Airway Patency, RR, SpO2: stable & adequate BP & HR: stable & adequate Hydration State: stable & adequate Anesthetic Complications: no major complications apparent
--- NOTE | 2021-01-17 12:16 | Hospitalist Progress Note ---
Date of Service January 17, 2021 Assessment & Plan (1) Metastatic disease: Patient presented from home with reports of right-sided rib pain for 3 weeks In the ED, CT ABD/pelvis shows findings consistent with metastatic disease, bony lesions within the right lateral 8th rib and body of T11 with associated pathologic fractures, gastric wall appears thickened concerning for source of primary disease 2.7 cm left hepatic lobe lesion is incompletely characterized but favors a hemangioma - consider dedicated liver CT or MRI to further evaluate EGD today showed normal esophagus, segmental mucosal changes characterized by congestion, erythema and ulceration in the gastric body with biopsies taken and normal duodenum GI recommend PPI twice daily as well as MRI of liver to better assess lesion Awaiting MRI GI will follow up pathology with patient Patient will need follow-up with oncology outpatient for further evaluation and management Pain is coming currently controlled with oxycodone Patient counseled on need to quit chewing tobacco (2) HTN (hypertension): Currently controlled Continue lisinopril/HCTZ, make adjustments as needed (3) HLD (hyperlipidemia): Continue gemfibrozil (4) DVT prophylaxis: SCDs Plan discussed with patient. Also spoke with patient over the phone and discussed plans with her Possible discharge after getting an MRI Admission and Anticipated Discharge Date Admission Date: January 16, 2021 Subjective 55-year-old man with history of hypertension who presents with right-sided chest wall pain for the past 3 weeks. Found to have pathological fracture of right lateral rib and T11, suspicious for metastatic disease as well as thickened gastric wall with left hepatic lobe lesion Patient seen and examined this morning. Reports pain is controlled Denies all other complaints Review of Systems Review of Systems: All systems reviewed & are unremarkable except as noted in Subjective Physical Exam Constitutional: + well hydrated and + obese; no acute distress Eyes: PERRL, conjunctivae normal, anicteric sclerae ENMT: external ear and nose normal, oropharynx normal Respiratory: normal respiratory effort, lungs clear to auscultation Cardiovascular: RRR, no murmur, no edema Chest (Breasts): Additional Comments: Right lateral chest wall tenderness Gastrointestinal (Abdomen): normal bowel sounds, soft, nontender, no hepatosplenomegaly Musculoskeletal: no cyanosis or clubbing, extremities motor strength 5/5 Neurologic: PERRL, EOMI, accommodation nl, no face palsy, no dysarthria Psychiatric: A+Ox3, euthymic affect Results & Data Results & Data ([facility]) Vital Signs (Past 12 Hours) Vital Signs Temp Pulse Resp BP Pulse Ox 01/17/21 11:46 37 C 65 18 126/79 95 01/17/21 09:30 65 20 116/77 93 01/17/21 09:17 76 20 125/80 94 01/17/21 09:04 71 18 108/56 L 93 01/17/21 08:27 37.0 C 66 16 148/85 H 96 01/17/21 06:48 36.8 C 63 18 121/77 95 01/17/21 03:58 36.7 C 73 20 127/74 92 Laboratory Results Abnormal lab results 01/16/21 01/17/21 01/17/21 Range/Units 14:30 07:31 07:31 RBC 4.50 L (4.7-6.1) M/uL Hgb 12.4 L (14.0-18.0) g/dL Hct 37.9 L (42-52) % Alkaline Phosphatase 138 H (45-117) U/L Albumin 3.0 L (3.4-5.0) gm/dl Albumin/Globulin Ratio 0.8 L (0.9-2) Ur Specific [place] > 1.045 H (1.000-1.030)
--- NOTE | 2021-01-17 12:34 | Emergency Department Note ---
ED Visit Note I have personally evaluated this patient examined him and reviewed the pertinent labs and data. I have discussed the case with Polo Levy,the physician real estate legal assistant and agree with the plan. Please refer to the PA note. This patient comes in with left-sided rib/flank pain and was found to have what appears to be pathological fractures and CAT scans concerning for metastatic disease, previously undiagnosed. I talked to the patient at length with Polo. We are both concerned about follow-up and getting this patient pain management as well as definitive diagnosis and treatment plan and of recommended that he be admitted/observed to achieve these goals. Although he was initially reluctant he did agree. I talked to both the patient and his at length about this. .
[2021-01-17] MEDS: SODIUM CHLORIDE 0.9% 1000ML 1,000 ML IV SCH (13:52)
[2021-01-17] MEDS: PANTOprazole 40 MG TAB PO SCH (20:50)
[2021-01-17] MEDS ORDERED: GADOXETATE DISODIUM IV ONE (21:52)
[2021-01-18] MEDS: SODIUM CHLORIDE 0.9% 1000ML 1,000 ML IV SCH (03:27)
[2021-01-18 07:27] VITALS: PULSE 66; TEMP 97.9; O2SAT 93
[2021-01-18] MEDS: PANTOprazole 40 MG TAB PO SCH (08:16)
[2021-01-18] MEDS: LISINOPRIL/HCTZ 20/25MG 1 TAB PO SCH (08:16)
[2021-01-18] MEDS: gemfibroziL 600 MG TAB PO SCH (08:16)
[2021-01-18] MEDS: CITALOPRAM 20 MG TAB PO SCH (08:16)
[2021-01-18 08:21] LABS: Hematocrit (blood only) 37.2 % (42-52); Hemoglobin 12.1 g/dL (14.0-18.0); Mean Corpuscular Hemoglobin 27.1 pg (25-34); Mean Corpuscular Hgb Conc 32.5 g/dL (32-36); Mean Corpuscular Volume 83.4 fL (80-100); Mean Platelet Volume 8.8 fL (7.4-10.4); Platelet Count 238 K/uL (130-400); RDW Coefficient of Variation 14.4 % (11.5-14.5); RDW Standard Deviation 43.9 fL (36.4-46.3); Red Blood Count 4.46 M/uL (4.7-6.1); White Blood Count 6.67 K/uL (4.8-10.8)
[2021-01-18 08:49] LABS: Calcium 9.5 mg/dl (8.5-10.1); Est GFR (African American) 110.5 ml/min; Est GFR (Non-African American) 95.4 ml/min; Potassium 4.1 mmol/L (3.5-5.1)
--- NOTE | 2021-01-18 11:10 | Magnetic Resonance Report ---
MR abdomen wo/w con CLINICAL HISTORY: metastatic disease, eval liver lesion noted on CT TECHNIQUE: Imaging was performed prior to and following IV contrast injection. COMPARISON STUDY: No previous studies for comparison. Correlation is made with CT of the abdomen and pelvis performed on January 16, 2021. FINDINGS: Evaluation of the liver shows normal size and signal of its parenchyma. No intrahepatic biliary dilat ation is seen. There is 2.8 x 2.1 x 2.8 cm high T2 signal lesion within subcapsular aspect of the left lobe of the l iver corresponding to the lesion which was also seen on recent CT of the abdomen. This lesion is T1 h ypointense and show restricted diffusion. Progressive enhancement is seen after intravenous contrast administration. Gallbladder is contracted with multiple punctate areas of low signal within its lumen which could rep resent gallstones. Minimal gallbladder wall thickening is seen. Pancreas, spleen and bilateral adrenal glands are unremarkable. Evaluation is slightly limited due to motion artifact. No evidence of hydronephrosis. Few parapelvic cysts are seen bilaterally. Small cortical cyst are see n within left kidney. Visualized portion of the bowel is nondilated. Visualized portion of abdominal aorta shows no evidenc e of aneurysmal dilatation. Asymmetrical bone marrow enhancement of T11 vertebra is seen on this nondedicated exam and might repr esent metastatic lesion versus other etiology. IMPRESSION: 1. Focal lesion within left lobe of the liver most likely represent hemangioma, however neoplastic p rocess cannot be completely ruled out. Short-term follow-up in 6 months is suggested. 2. Abnormal enhancement of the T11 vertebral body, incompletely evaluated on this nondedicated exam and might represent metastasis versus other etiology. Further evaluation with MRI of the lumbar spine might be considered. 3. Cholelithiasis. Contracted gallbladder. Limited evaluation. ACT 112: Positive. There are findings on this exam that require communication between the performing entity and the patient following Patient Test Result Information Act ([place] Act 112) guidelines. The above report was generated using voice recognition software. It may contain grammatical, syntax o r spelling errors. Electronically signed by: Gela Sams DO 01/18/2021 11:08 AM
[2021-01-18 12:06] VITALS: BP 116/74
--- NOTE | 2021-01-18 13:30 | Hospitalist Progress Note ---
Date of Service January 18, 2021 Assessment & Plan (1) Metastatic disease: Bony lesions within the right lateral 8th rib and body of T11 with associated pathologic fractures Possible Metastatic Disease, Underlying Primary Unknown- possible Gastric Ca vs. Lymphoma per Dr. Silva's notes: Patient presented from home with reports of right-sided rib pain for 3 weeks In the ED, CT ABD/pelvis shows findings consistent with metastatic disease, bony lesions within the right lateral 8th rib and body of T11 with associated pathologic fractures, gastric wall appears thickened concerning for source of primary disease 2.7 cm left hepatic lobe lesion is incompletely characterized but favors a hemangioma - consider dedicated liver CT or MRI to further evaluate GI consulted- Dr. Miramontes EGD showed normal esophagus, segmental mucosal changes characterized by congestion, erythema and ulceration in the gastric body with biopsies taken and normal duodenum Pathology report: pending GI recommend PPI twice daily Abdominal MRI: 1. Focal lesion within left lobe of the liver most likely represent hemangioma, however neoplastic process cannot be completely ruled out. Short-term follow-up in 6 months is suggested. 2. Abnormal enhancement of the T11 vertebral body, incompletely evaluated on this nondedicated exam and might represent metastasis versus other etiology. Further evaluation with MRI of the lumbar spine might be considered. 3. Cholelithiasis. Contracted gallbladder. Limited evaluation. GI will follow up pathology with patient Patient will need follow-up with oncology asoutpatient for further evaluation and management Pain is currently controlled with oxycodone- prescription given. Patient counseled on need to quit chewing tobacco PCP ff up on Saturday (2) HTN (hypertension): Currently controlled Continue lisinopril/HCTZ (3) HLD (hyperlipidemia): Continue gemfibrozil (4) DVT prophylaxis: SCDs plan of care discussed with patient and his Aylin in detail and at length all questions answered they are understanding, agreeable, comfortable with the plan of care Admission and Anticipated Discharge Date Admission Date: January 16, 2021 Subjective ff up for rib pain, possible mets seen resting in bed, patient's Yuly at the bedside visiting states he feels fine today rib pain adequately controlled denies shortness of breath, cough no back pain, focal weakness or numbness ambulating fine, eating well no other symptoms states he is ready for discharge today Review of Systems Review of Systems: All systems reviewed & are unremarkable except as noted in Subjective Physical Exam Physical Exam: General- oriented x 3, not in distress, speaks in sentences with no effort or accessory muscle use Eyes- anicteric Neck- no JVD Lungs- clear breath sounds bilaterally, no rales/wheezes Heart- normal rate, regular rhythm; no murmurs Abdomen- normal bowel sounds, nondistended, soft, nontender Extremities- no pretibial edema, no calf tenderness Neuro- alert, oriented x 3; no gross focal neurologic deficits Skin- warm & dry Results & Data Results & Data ([facility]) Vital Signs (Past 12 Hours) Vital Signs Temp Pulse Resp BP BP Pulse Ox 01/18/21 12:05 36.6 C 66 18 116/74 120/67 93 01/18/21 07:26 36.6 C 66 18 120/67 93 01/18/21 03:00 36.7 C 65 18 116/74 95 all noted and reviewed including below Laboratory Results Laboratory Results - last 24 hr 01/18/21 01/18/21 07:28 07:28 WBC 6.67 RBC 4.46 L Hgb 12.1 L Hct 37.2 L MCV 83.4 MCH 27.1 MCHC 32.5 RDW Std Deviation 43.9 RDW Coeff of Rm 14.4 Plt Count 238 MPV 8.8 Sodium 138 Potassium 4.1 Chloride 106 Carbon Dioxide 27 Anion Gap 5.0 BUN 19 H D Creatinine 0.88 Est Cr Clr Drug Dosing 109.0 Est GFR ( Amer) 110.5 Est GFR (Non-Af Amer) 95.4 BUN/Creatinine Ratio 22.0 H Glucose 88 Calcium 9.5
--- NOTE | 2021-01-18 13:36 | Discharge Summary ---
Date of Service January 18, 2021 Admission HPI Per Admitting Provider 55-year-old male with PMH HTN, HLD, not problems to below who presents to the ED for evaluation of right-sided rib pain. Patient reports symptoms have been ongoing for the past few weeks. Was seen by his PCP and had a rib x-ray that was unremarkable. Patient reports pain has worsened so he therefore presented to the ED today for further evaluation. Patient has had a poor appetite for the past 2 weeks as well. Denies any significant weight loss. No abdominal pain, nausea, vomiting, diarrhea. Denies bright red bleeding per rectum or dark tarry stools. No fevers or chills. Denies chest pain shortness of breath. No lightheadedness, dizziness, diaphoresis, syncopal events. Denies urinary symptoms. In the ED, CT ABD/pelvis shows findings are consistent with metastatic disease, there are destructive bony lesions within the right lateral 8th rib and body of T11 with associated pathologic fractures, there are pathologically enlarged lymph nodes in the upper abdomen, inferior mediastinum, and left periaortic region, the gastric wall appears thickened and featureless. Although not well evaluated by CT, a primary gastric neoplasm is a strong differential consideration. Correlate with endoscopy, a 2.7 cm left hepatic lobe lesion is incompletely characterized but favors a hemangioma. This could be further assessed with a nonemergent dedicated CT or MRI of the liver. Labs show mild anemia with Hgb 12.5, mild alk phos elevation at 134. Patient was given IV morphine, IV Zofran. Admission Exam Per Admitting Provider General: Well hydrated, no acute distress and not ill appearing Eyes: PERRL, conjunctivae normal, not pale, anicteric sclerae, EOM intact bilaterally ENMT: External ear and nose normal, oropharynx normal Neck: Normal visual inspection, no tracheal deviation, no swelling noted Respiratory: Normal respiratory effort, no respiratory distress, lungs clear to auscultation, no crackles and no wheezes Cardiovascular: Pulse is RRR. Heart Sounds: normal S1 and normal S2; no murmurs. Vessels: normal peripheral pulses Extremities: no pedal edema Chest (Breasts): Chest: normal inspection of chest. +Right lower chest wall tenderness Gastrointestinal (Abdomen): Abdomen is not distended, soft, non-tender to palpation, no guarding, no palpable hepatosplenomegaly, normal bowel sounds Musculoskeletal: No cyanosis or clubbing, all extremities motor strength 5/5 Genitourinary: No CVA tenderness Skin: No rash noted on gross inspection, No ulcers noted Neurologic: Alert and oriented x 3, No focal weakness, sensation grossly intact Psychiatric: Alert and oriented x 3, euthymic affect, no depressed affect Principal Diagnosis Bony lesions within the right lateral 8th rib and body of T11 with associated pathologic fractures Possible Metastatic Disease, Underlying Primary Unknown- possible Gastric Ca vs. Lymphoma Discharge Exam General- oriented x 3, not in distress, speaks in sentences with no effort or accessory muscle use Eyes- anicteric Neck- no JVD Lungs- clear breath sounds bilaterally, no rales/wheezes Heart- normal rate, regular rhythm; no murmurs Abdomen- normal bowel sounds, nondistended, soft, nontender Extremities- no pretibial edema, no calf tenderness Neuro- alert, oriented x 3; no gross focal neurologic deficits Skin- warm & dry Discharge Data Allergies Allergy/AdvReac Type Severity Reaction Status Date / Time No Known Allergies Allergy Unverified 01/16/21 09:07 Consultations 01/16/21 12:31 ED Decision to Admit Stat 01/16/21 15:58 Consult Gastroenterology Routine Procedures Performed Operation Date: 01/17/21 16:00 Actual Procedures p EGD Biopsy Cytology - Rosy Miramontes DO Ordered Studies 01/16/21 08:39 CT abd pelvis IV con only Stat CT SCAN OF THE ABDOMEN AND PELVIS WITH IV CONTRAST CLINICAL HISTORY: Right upper quadrant abdominal pain COMPARISON STUDY: No priors. TECHNIQUE: Following the IV administration of 110 cc of Optiray 350, CT scan of the abdomen and pelvis is performed from the lung bases to the proximal femora. Images are reviewed in the axial, sagittal, and coronal planes. IV contrast was administered without complication. A dose lowering technique was utilized adhering to the principles of ALARA. FINDINGS: Lung bases: The heart is normal in size and without pericardial effusion. The lung bases are clear noting dependent atelectasis. A small hiatal hernia is noted. Mildly enlarged lymph nodes at the esophageal hiatus measure up to 1.0 cm. Liver: The contrast-enhanced liver is top normal in size. The liver demonstrates diffusely diminished attenuation consistent with hepatic steatosis. There is no intrahepatic biliary ductal dilatation. The hepatic veins and portal veins are patent. There is a 2.7 cm lesion in the left lobe of liver seen on image #71. This demonstrates foci of peripheral discontinuous nodular enhancement, and although incompletely characterized the appearance favors a hemangioma. Gallbladder: There are numerous calcified gallstones without CT evidence of acute cholecystitis. Spleen: The spleen is mildly enlarged measuring 14.4 cm in length. Pancreas: Unremarkable. Adrenal glands: Unremarkable. Kidneys: The contrast enhanced kidneys are normal in size and without hydronephrosis. The kidneys enhance symmetrically. Abdominal vasculature: The abdominal aorta is normal in course and caliber noting moderate atherosclerotic calcification. Stomach and bowel: The gastric wall appears thickened and featureless. Small lymph nodes along the greater curvature of the stomach measure up to 9 mm. There is mild colonic diverticulosis without CT evidence of acute diverticulitis. No bowel obstruction is seen. The appendix is well-visualized and normal. Peritoneum: There is nonspecific soft tissue infiltration in the upper abdomen and along the mesentery with trace fluid. No intraperitoneal free air is identified. Trace free fluid is seen in the pelvis. There is a fat-containing umbilical hernia. Lymphadenopathy: There are enlarged upper abdominal lymph nodes. A celiac node on image #79 measures 2.3 x 1.2 cm. An enlarged left periaortic node on image #170 measures 1.8 x 1.3 cm. No additional enlarged retroperitoneal lymph nodes are identified. Pelvic viscera: The bladder, prostate, and seminal vesicles are normal as visualized. Skeletal structures: There is an osteolytic lesion identified in the body of T11 with an inferior endplate compression deformity. There is a subtle destructive lesion within the right lateral 8th rib with associated pathologic fracture. No additional destructive bony lesions are clearly identified. IMPRESSION: 1. Findings are consistent with metastatic disease. 2. There are destructive bony lesions within the right lateral 8th rib and body of T11 with associated pathologic fractures. 3. There are pathologically enlarged lymph nodes in the upper abdomen, inferior mediastinum, and left periaortic region. 4. The gastric wall appears thickened and featureless. Although not well evaluated by CT, a primary gastric neoplasm is a strong differential consideration. Correlate with endoscopy. 5. A 2.7 cm left hepatic lobe lesion is incompletely characterized but favors a hemangioma. This could be further assessed with a nonemergent dedicated CT or MRI of the liver. 6. Cholelithiasis. 7. Hepatic steatosis. 8. Additional findings as above. CT angio chest PE protocol Stat 01/17/21 00:00 COMPARISON STUDY: Chest radiograph January 21, 2013. TECHNIQUE: Following IV administration of 110 mL of Optiray, helical axial images of the chest were obtained utilizing the pulmonary embolus protocol. Maximal intensity projections and sagittal and coronal reformats were viewed on an independent 3D workstation. IV contrast was administered without complication. Automated exposure control was utilized for the study. A dose lowering technique was utilized adhering to the principles of ALARA. CT DOSE: 1518.90 mGycm FINDINGS: No pulmonary emboli are identified. There is no thoracic aortic dissection. Mild cardiomegaly is noted. There is no pericardial effusion. Note is made of a few prominent asymmetrically enlarged right supraclavicular lymph nodes that measure up to 9 mm in short axis diameter. There is mild mediastinal and bilateral hilar lymphadenopathy. Numerous mildly enlarged lymph nodes are noted. Index left hilar node measures 2.4 x 1.5 cm. Index subcarinal node measures 1.6 x 1.6 cm. Index right hilar node measures 1.8 x 1.5 cm. A few perifissural right lung nodules measure up to 6 mm. These are likely benign. There is no pneumothorax or pleural effusion. Note is made of a lytic lesion within the T11 vertebral body that measures 2 cm. There is associated pathologic fracture involving the inferior endplate of this vertebral body. No retropulsion. No epidural extension is identified. Note is also made of subtle lucency and sclerosis within the lateral right eighth rib with suspected pathologic fracture. The abdomen and pelvis will be reported separately. IMPRESSION: 1. No pulmonary emboli identified. 2. Multiple mildly enlarged mediastinal and bilateral hilar lymph nodes. In addition, 2 cm lytic lesion within T11 with pathologic fracture and a suspected right eighth rib lesion with pathologic fracture. These findings are highly suggestive of a neoplastic process and favor metastatic disease. MR abdomen wo/w con Routine FINDINGS: Evaluation of the liver shows normal size and signal of its parenchyma. No intrahepatic biliary dilatation is seen. There is 2.8 x 2.1 x 2.8 cm high T2 signal lesion within subcapsular aspect of the left lobe of the liver corresponding to the lesion which was also seen on recent CT of the abdomen. This lesion is T1 hypointense and show restricted diffusion. Progressive enhancement is seen after intravenous contrast administration. Gallbladder is contracted with multiple punctate areas of low signal within its lumen which could represent gallstones. Minimal gallbladder wall thickening is seen. Pancreas, spleen and bilateral adrenal glands are unremarkable. Evaluation is slightly limited due to motion artifact. No evidence of hydronephrosis. Few parapelvic cysts are seen bilaterally. Small cortical cyst are seen within left kidney. Visualized portion of the bowel is nondilated. Visualized portion of abdominal aorta shows no evidence of aneurysmal dilatation. Asymmetrical bone marrow enhancement of T11 vertebra is seen on this nondedicated exam and might represent metastatic lesion versus other etiology. IMPRESSION: 1. Focal lesion within left lobe of the liver most likely represent hemangioma, however neoplastic process cannot be completely ruled out. Short-term follow-up in 6 months is suggested. 2. Abnormal enhancement of the T11 vertebral body, incompletely evaluated on this nondedicated exam and might represent metastasis versus other etiology. Further evaluation with MRI of the lumbar spine might be considered. 3. Cholelithiasis. Contracted gallbladder. Limited evaluation. Hospital Course (1) Metastatic disease: Bony lesions within the right lateral 8th rib and body of T11 with associated pathologic fractures Possible Metastatic Disease, Underlying Primary Unknown- possible Gastric Ca vs. Lymphoma per Dr. Silva's notes: Patient presented from home with reports of right-sided rib pain for 3 weeks In the ED, CT ABD/pelvis shows findings consistent with metastatic disease, bony lesions within the right lateral 8th rib and body of T11 with associated pathologic fractures, gastric wall appears thickened concerning for source of primary disease 2.7 cm left hepatic lobe lesion is incompletely characterized but favors a hemangioma - consider dedicated liver CT or MRI to further evaluate GI consulted- Dr. Miramontes EGD showed normal esophagus, segmental mucosal changes characterized by congestion, erythema and ulceration in the gastric body with biopsies taken and normal duodenum Pathology report: pending GI recommend PPI twice daily Abdominal MRI: 1. Focal lesion within left lobe of the liver most likely represent hemangioma, however neoplastic process cannot be completely ruled out. Short-term follow-up in 6 months is suggested. 2. Abnormal enhancement of the T11 vertebral body, incompletely evaluated on this nondedicated exam and might represent metastasis versus other etiology. Further evaluation with MRI of the lumbar spine might be considered. 3. Cholelithiasis. Contracted gallbladder. Limited evaluation. GI will follow up pathology with patient Patient will need follow-up with oncology asoutpatient for further evaluation and management Pain is currently controlled with oxycodone- prescription given. Patient counseled on need to quit chewing tobacco PCP ff up on Saturday (2) HTN (hypertension): Currently controlled Continue lisinopril/HCTZ (3) HLD (hyperlipidemia): Continue gemfibrozil (4) DVT prophylaxis: SCDs plan of care discussed with patient and his Aylin in detail and at length all questions answered they are understanding, agreeable, comfortable with the plan of care Total Time Total Time Spent Total Time Spent (In Minutes): 50 minutes Discharge Plan Discharge Items Patient Disposition: Home - Self-Care Reason For Visit: Right chest wall pain Discharge Diagnosis: Pathologic right rib fracture Pathologic T11 fracture Condition on Discharge: Good Activity: As commented below Activity Comment: Resume activity with caution Lifting: Gradually increase as tolerated Non-emergency contact: Primary Care Provider and Oncologist Call non-emergency contact if: you have any medication questions and your symptoms worsen Follow-up/Referrals: Aristeo Spencer MD [Primary Care Provider] - 01/20/21 12:00 pm ( Date & Time 01/20/2021 12:00 PM Provider Gerardo Cr MD Department Family [facility] ) Diet: Heart Healthy Addtl Attending Provider Instructions: Mr Erwin. You came to the hospital complaining of right-sided chest wall pain. You were evaluated with a CAT scan which showed pathological fractures in the rib and spine with lesions concerning for metastatic disease. You had endoscopy done with some biopsy taken by the technology infusion specialist. Gastroenterology will follow up the pathology report with you. You will also need to get MRI of the abdomen to better evaluate your liver. Please ensure you follow-up with the oncologist for further workup and management It was a pleasure taking care of you Pending Studies at Discharge: Yes Stand-Alone Forms: My [email or web address], Smoking Cessation Medications and DC Order Prescriptions: New oxycodone 5 mg Tablet 5 mg PO Q6H PRN (Reason: severe pain (scale score 7-10)) Qty: 20 RF: 0 pantoprazole 40 mg tablet,delayed release (DR/EC) 40 mg PO BID 30 Days Qty: 60 RF: 0 Continued acetaminophen [Tylenol] 325 mg Tablet 325 mg PO QID PRN (Reason: Pain) RF: 0 aspirin 81 mg Tablet,Delayed Release (Dr/Ec) 81 mg PO DAILY RF: 0 citalopram 20 mg tablet 20 mg PO DAILY RF: 0 lisinopril-hydrochlorothiazide 20-25 mg tablet 1 tab PO DAILY RF: 0 gemfibrozil 600 mg Tablet 600 mg PO DAILY RF: 0 Discontinued ibuprofen 200 mg Tablet 200 mg PO Q6H PRN (Reason: Pain) RF: 0 Discharge Orders: Discharge Order (Routine); Ordered 01/18/21 Ordered By: Ge Pang Admission Data Admit Date/Time: 01/16/21 12:39 Attending Provider: Ge Pang Admit Provider: Lisbeth Silva I. Primary Care Provider: Aristeo Spencer Other Providers: Lisbeth Silva I. ; Rosy Miramontes Other Interventions: Discharge Summary Assessment (RN) Last Done: 01/18/21 12:05
== END 2021-01-18 12:39 | disposition home or self-care (01) ==
LOC: ED 08:19 → SUATTDRO 12:39 → 2N 12:39

== ENCOUNTER 2021-02-21 16:07 | Observation (INO) ==
[2021-02-21] MEDS ORDERED: KETOROLAC TROMETHAMINE 15 MG/ML VIAL IV STA (16:39)
[2021-02-21] MEDS ORDERED: HYDROmorphone INJ 1 MG/ML SYRINGE IV PRN (16:39)
[2021-02-21] MEDS ORDERED: ONDANSETRON INJ 2 MG/ML 2 ML VIAL IV STA (16:39)
[2021-02-21] MEDS ORDERED: HYDROmorphone INJ 1 MG/ML SYRINGE IV STA (16:39)
[2021-02-21] MEDS ORDERED: SODIUM CHLORIDE 0.9% 1000ML 1,000 ML IV SCH (16:45)
--- NOTE | 2021-02-21 16:45 | Emergency Department Note ---
Impression & Plan Severe back pain, Metastatic adenocarcinoma, Fracture of rib, Fracture of T11 vertebra, Failure of outpatient treatment ED Provider Note NAME: BLANCO LIVE AGE: 55 SEX: M : 1965 ARRIVES VIA: Walk-In INFORMANT: [Patient][family] ED PROVIDER(S): [Chas Matt MD] CHIEF COMPLAINT: Back pain HISTORY OF PRESENT ILLNESS: The patient is a 55-year-old male who has had mid to lower back pain for over a month. The pain has increased and is now a 10/10 despite 10 mg oxycodone tablets that he is taking at home. He was told that he had a T11 lesion/fracture from metastatic adenocarcinoma. No numbness or tingling in his legs or feet. No leg weakness. The patient also has a rib fracture from metastatic adenocarcinoma. He is being seen by hematology oncology from [facility]. The patient was seen today and was felt to have too much pain to function at home. He was sent to this ED for hospitalization. He will require a morphine or Dilaudid pump. He will have further testing for the origin for his metastatic cancer once his pain is better controlled. He cannot tolerate any testing at this point. There has been no fever, no cough or cold or congestion. No urinary complaints. He has had a decreased appetite and his urine has been darker in color as if he is dehydrated. REVIEW OF SYSTEMS: See HPI for pertinent positives and negatives. A total of ten systems were reviewed and were otherwise negative. PMHx/PSHx: See Below SOCIAL HISTORY: See Below. PHYSICAL EXAM: GENERAL: Patient is in moderate distress from pain. HEENT: No acute trauma, normocephalic atraumatic, mucous membranes moist, no nasal congestion, no scleral icterus. NECK: No stridor, no adenopathy, no meningismus, trachea is midline. LUNGS: Clear to auscultation bilaterally, no wheeze, no rhonchi, breath sounds equal. Increased respiratory rate. HEART: Without murmurs gallops or rubs, regular rate and rhythm. ABDOMEN: Soft, nontender, bowel sounds positive, no hernias, no peritonitis. EXTREMITIES: No cyanosis or edema, full range of motion of all the joints without pain or difficulty, no signs for acute trauma. NEUROLOGIC: Oriented x 3, no acute motor or sensory deficits, no focal weakness. SKIN: No rash, no jaundice, no diaphoresis. DIFFERENTIAL DIAGNOSIS: Dehydration, electrolyte imbalance, fracture, failed outpatient management, anemia, metastatic disease, infection, renal or liver failure, among others. EMERGENCY DEPARTMENT COURSE/PROCEDURES: EKG: Indication was weakness. The ECG shows a normal sinus rhythm with a rate of 77. There is no ST elevation, no PVCs. The QTc is 450. MEDICAL DECISION MAKING: There is no leukocytosis. The patient has a mild anemia but he has a history of the same. There is a somewhat low platelet count at 95. Magnesium was slightly low, no kidney failure. There were a few subtle liver enzyme elevations, the bilirubin though was normal. Patient appeared to be in a euthyroid state. ECG showed a sinus rhythm, no acute ischemia. Covid testing is pending. On exam, the patient seemed uncomfortable from his mid to lower back pain. The patient was sent here for hospitalization. His pain is not manageable at home. He has metastatic adenocarcinoma, the source is not yet known. He has pathologic fractures of T11 and of his right eighth rib. The patient was given IV Dilaudid for pain control, he received IV Toradol, IV magnesium and IV Zofran. He was given a 1000 cc saline bolus. The patient's pain is now controlled at a 1 or 2. He is resting comfortably. The patient is in need of a hospital stay for pain control and further work-up. I did speak with the patient and keycase assembler. The on-call hospitalist was consulted. Past Med/Surg History Medical History Anemia Anxiety GERD (gastroesophageal reflux disease) HLD (hyperlipidemia) HTN (hypertension) Stomach ulcer Surgical History History of esophagogastroduodenoscopy (EGD) History of surgery on arm RT Family History Father Heart disease Other No family history of adverse response to anesthesia Social History Smoking Status: Former smoker Tobacco Type: Cigarettes Second Hand Exposure: No; Hx Alcohol Use: No Preferred Language: Grenadian Communication Ability: Effective Full Stack Python Developer Required: No Beliefs That Will Affect Care: None Current Living Situation: Spouse Feels Safe at Home: Yes Assistive Devices: Glasses Allergies Allergies Allergy/AdvReac Type Severity Reaction Status Date / Time No Known Allergies Allergy Verified 02/21/21 16:29 Home Meds Home Medications Medication Instructions Recorded Confirmed aspirin 81 mg PO QAM 01/16/21 02/21/21 citalopram 20 mg PO QAM 01/16/21 02/21/21 gemfibrozil 600 mg PO BID 01/16/21 02/21/21 lisinopril-hydrochlorothiazide 1 tab PO QAM 01/16/21 02/21/21 cyclobenzaprine 10 mg PO TID PRN 02/06/21 02/21/21 docusate sodium 100 mg PO BID 02/06/21 02/21/21 omeprazole 20 mg PO DAILY PRN 02/06/21 02/21/21 oxycodone 10 mg PO Q6H PRN 02/06/21 02/21/21 senna 8.6 mg PO DAILY 02/06/21 02/21/21 pantoprazole 40 mg PO BID 02/21/21 02/21/21 Results & Data (ED) Vital Signs Vital Signs - 24 hr 02/21/21 16:18 02/21/21 16:55 02/21/21 16:57 Temperature 36.4 C L Temperature Source Temporal Artery Scan Pulse Rate 93 H 89 84 Pulse Rate from SpO2 Sensor 89 84 Respiratory Rate 22 21 15 Blood Pressure 122/70 135/70 Blood Pressure Mean 87 91 Blood Pressure Position Sitting Pulse Oximetry 100 99 98 Oxygen Delivery Method Room Air Room Air Sepsis Recent Fever Within 48 Hours No Sepsis New/Unexplained Change in Mental Status N/A Sepsis Action Taken by Nursing No Action Required 02/21/21 17:00 Temperature Temperature Source Pulse Rate 83 Pulse Rate from SpO2 Sensor 87 Respiratory Rate 20 Blood Pressure 119/66 Blood Pressure Mean 83 Blood Pressure Position Pulse Oximetry 96 Oxygen Delivery Method Sepsis Recent Fever Within 48 Hours Sepsis New/Unexplained Change in Mental Status Sepsis Action Taken by [facility] Medications Current Medication List: was personally reviewed by me Laboratory Data Attestation: I reviewed the patient's lab results. Result diagrams: 02/21/21 17:00 02/21/21 17:00 Lab Results 02/21/21 02/21/21 02/21/21 Range/Units 17:00 17:00 17:24 WBC 7.69 (4.8-10.8) K/uL RBC 4.46 L (4.7-6.1) M/uL Hgb 11.4 L (14.0-18.0) g/dL Hct 34.2 L (42-52) % MCV 76.7 L (80-100) fL MCH 25.6 (25-34) pg MCHC 33.3 (32-36) g/dL RDW Std Deviation 39.5 (36.4-46.3) fL RDW Coeff of Rm 14.1 (11.5-14.5) % Plt Count 95 L (130-400) K/uL MPV 11.0 H (7.4-10.4) fL Immature Gran % (Auto) 0.9 % Neut % (Auto) 81.4 % Lymph % (Auto) 10.3 % Kleberg % (Auto) 6.9 % Eos % (Auto) 0.4 % Baso % (Auto) 0.1 % Neut # (Auto) 6.26 (1.4-6.5) K/uL Lymph # (Auto) 0.79 L (1.2-3.4) K/uL Kleberg # (Auto) 0.53 (0.11-0.59) K/uL Eos # (Auto) 0.03 (0-0.5) K/uL Baso # (Auto) 0.01 (0-0.2) K/uL Immature Gran # (Auto) 0.07 H (0.00-0.02) K/uL Absolute Nucleated RBC 0.03 H (0-0) K/uL Nucleated RBC % (auto) 0.4 % Platelet Estimate Decreased L (Normal) Sodium 132 L (136-145) mmol/L Potassium 4.1 (3.5-5.1) mmol/L Chloride 100 (98-107) mmol/L Carbon Dioxide 22 (21-32) mmol/L Anion Gap 10.0 (3-11) BUN 22 H (7-18) mg/dl Creatinine 1.12 (0.6-1.4) mg/dl Est Cr Clr Drug Dosing 83.0 ml/min Est GFR ( Amer) 84.1 ml/min Est GFR (Non-Af Amer) 72.5 ml/min BUN/Creatinine Ratio 19.4 (10-20) Glucose 157 H (70-99) mg/dl Calcium 9.6 (8.5-10.1) mg/dl Magnesium 1.7 L (1.8-2.4) mg/dl Total Bilirubin 0.9 (0.2-1) mg/dl AST 64 H (15-37) U/L ALT 60 (12-78) U/L Alkaline Phosphatase 235 H (45-117) U/L Total Protein 7.4 (6.4-8.2) gm/dl Albumin 3.0 L (3.4-5.0) gm/dl Globulin 4.4 H (2.5-4.0) gm/dl Albumin/Globulin Ratio 0.7 L (0.9-2) TSH 1.240 (0.300-4.500) uIu/ml COVID-19 Eval Order Covid19 at [facility] Administered Medications Magnesium Sulfate/Dextrose (Magnesium Sulfate / D5w) 1 gm in 100 mls @ 100 mls/hr IV NOW STA Stop: 02/21/21 18:36 Last Admin: 02/21/21 17:41 Dose: 100 mls/hr Documented by: [id number] Discontinued Medications Hydromorphone HCl (Hydromorphone Inj 1 Mg/Ml Syringe) 1 mg IV NOW STA Stop: 02/21/21 16:40 Last Admin: 02/21/21 16:58 Dose: 1 mg Documented by: [id number] Sodium Chloride (Nss 1000ml) 1,000 mls @ 999 mls/hr IV .Q1H1M INGRID Stop: 02/21/21 17:45 Last Infusion: 02/21/21 17:44 Dose: 0 mls/hr Documented by: [id number] Admin: 02/21/21 16:58 Dose: 999 mls/hr Documented by: [id number] Ketorolac Tromethamine (Ketorolac Tromethamine 15 Mg/Ml Vial) 15 mg IV NOW STA Stop: 02/21/21 16:40 Last Admin: 02/21/21 16:58 Dose: 15 mg Documented by: [id number] Ondansetron HCl (Ondansetron Inj 2 Mg/Ml 2 Ml Vial) 4 mg IV NOW STA Stop: 02/21/21 16:40 Last Admin: 02/21/21 16:58 Dose: 4 mg Documented by: [id number] Discharge Plan Visit Data Chief Complaint: Pain (Generalized) Stated Complaint: SENT BY DR MCKEON, SEVERE PAIN ED Provider: Chas Matt Discharge Problem: Severe back pain, Metastatic adenocarcinoma, Fracture of rib, Fracture of T11 vertebra, Failure of outpatient treatment Patient Disposition: Admitted As Inpatient Condition: Fair Forms Stand Alone Forms: [facility] Prescriptions Prescriptions: No Action aspirin 81 mg Tablet,Delayed Release (Dr/Ec) 81 mg PO QAM RF: 0 citalopram 20 mg tablet 20 mg PO QAM RF: 0 lisinopril-hydrochlorothiazide 20-25 mg tablet 1 tab PO QAM RF: 0 gemfibrozil 600 mg Tablet 600 mg PO BID RF: 0 cyclobenzaprine 10 mg Tablet 10 mg PO TID PRN (Reason: Pain) RF: 0 omeprazole 20 mg Capsule,Delayed Release(Dr/Ec) 20 mg PO DAILY PRN (Reason: Heartburn) RF: 0 docusate sodium 100 mg Tablet 100 mg PO BID RF: 0 senna 8.6 mg Capsule 8.6 mg PO DAILY RF: 0 oxycodone 10 mg Tablet 10 mg PO Q6H PRN (Reason: Pain) RF: 0 pantoprazole 40 mg tablet,delayed release (DR/EC) 40 mg PO BID RF: 0 Referrals Referrals: Brayan Mckeon MD [Primary Care Provider] - Discharge Problem: Fracture of rib Qualifiers: Encounter type: subsequent encounter Rib fracture type: single rib Fracture type: closed Laterality: right Fracture healing: with delayed healing Qualified Code(s): S22.31XG - Fracture of one rib, right side, subsequent encounter for fracture with delayed healing Fracture of T11 vertebra Qualifiers: Encounter type: subsequent encounter Fracture type: closed Fracture morphology: unspecified fracture morphology Fracture healing: with delayed healing Qualified Code(s): S22.089G - Unspecified fracture of T11-T12 vertebra, subsequent encounter for fracture with delayed healing
[2021-02-21 17:10] LABS: Hematocrit (blood only) 34.2 % (42-52); Hemoglobin 11.4 g/dL (14.0-18.0); Mean Corpuscular Hemoglobin 25.6 pg (25-34); Mean Corpuscular Hgb Conc 33.3 g/dL (32-36); Mean Corpuscular Volume 76.7 fL (80-100); Nucleated RBC # (auto) 0.03 K/uL (0-0); Nucleated RBC % (auto) 0.4 %; RDW Coefficient of Variation 14.1 % (11.5-14.5); RDW Standard Deviation 39.5 fL (36.4-46.3); Red Blood Count 4.46 M/uL (4.7-6.1); White Blood Count 7.69 K/uL (4.8-10.8)
[2021-02-21 17:33] LABS: BUN Creatinine Ratio 19.4 (10-20); Calcium 9.6 mg/dl (8.5-10.1); Est GFR (African American) 84.1 ml/min; Est GFR (Non-African American) 72.5 ml/min; Magnesium 1.7 mg/dl (1.8-2.4); Potassium 4.1 mmol/L (3.5-5.1)
[2021-02-21] MEDS ORDERED: MAGNESIUM SULFATE / D5W 1 GM/100 ML BAG IV STA (17:37)
[2021-02-21 17:38] LABS: Basophils # (auto) 0.01 K/uL (0-0.2); Basophils % (auto) 0.1 %; Eosinophils # (auto) 0.03 K/uL (0-0.5); Eosinophils % (auto) 0.4 %; Immature Granulocytes # (auto) 0.07 K/uL (0.00-0.02); Immature Granulocytes % (auto) 0.9 %; Lymphocytes # (auto) 0.79 K/uL (1.2-3.4); Lymphocytes % (auto) 10.3 %; Monocytes # (auto) 0.53 K/uL (0.11-0.59); Monocytes % (auto) 6.9 %; Neutrophils # (auto) 6.26 K/uL (1.4-6.5); Neutrophils % (auto) 81.4 %; Platelet Count 95 K/uL (130-400); Platelet Estimate Decreased (Normal)
[2021-02-21 17:43] LABS: Albumin Globulin Ratio 0.7 (0.9-2); Bilirubin,Total 0.9 mg/dl (0.2-1); Globulin 4.4 gm/dl (2.5-4.0); Thyroid Stimulating Hormone 1.24 uIu/ml (0.300-4.500); Total Protein 7.4 gm/dl (6.4-8.2)
--- NOTE | 2021-02-21 18:35 | History & Physical Report ---
Date of Service February 21, 2021 Assessment & Plan (1) Intractable back pain: (2) Pathologic rib fracture: (3) Pathologic thoracic fracture: (4) Metastatic adenocarcinoma: -Admit to [facility] [place] -Patient presenting by referral of outpatient oncology office for evaluation of intractable back pain. Patient recently admitted to [facility] 01/16-01/18 when he was found to have new metastatic disease and pathological fractures of the right eighth rib and T11. Patient underwent EGD and was found to have a nonbleeding ulcer, pathology subsequently showed H. pylori and patient has completed triple therapy. As an outpatient, patient underwent EUS with biopsy of a celiac lymph node that shows adenocarcinoma however primary remains unknown. -outpatient oncologist - Dr. Brayan Mckeon -radiation oncology and pain management consults -check CEA and Ca 19-9 -bone scan -Dilaudid 1mg IV q3h PRN - up titrate as needed (5) Hyponatremia: (6) Hypomagnesemia: -mild, Na+ 132, Mg+ 1.7 -IVF, hold HCTZ (7) Thrombocytopenia: (8) Anemia: -platelets 95K, hgb 11.4 -Likely due to underlying malignancy -Monitor CBC (9) Elevated LFTs: -AST 64, alk phos 235 -Likely due to underlying malignancy -Hold gemfibrozil, monitor LFTs (10) HTN (hypertension): -BP controlled, continue lisinopril -Hold HCTZ due to hyponatremia (11) HLD (hyperlipidemia): -Holding gemfibrozil as above (12) DVT prophylaxis: Lovenox SQ Monitor Platelets History of Present Illness Chief Complaint: Back pain Primary Care Provider: Brayan Mckeon MD 55-year-old male with PMH HLD, HTN, GERD, recently diagnosed adenocarcinoma of unknown primary, and other problems listed below who presents to the ED by referral of outpatient oncologist for evaluation and management of intractable back pain. Patient recently admitted to [facility] 01/16-01/18 when he was found to have new metastatic disease and pathological fractures of the right eighth rib and T11. Patient underwent EGD and was found to have a nonbleeding ulcer, pathology subsequently showed H. pylori and patient has completed triple therapy. As an outpatient, patient underwent EUS with biopsy of a celiac lymph node that shows adenocarcinoma however primary remains unknown. Patient reports worsening mid back pain. He has been taking oxycodone 10 mg without relief. He has had a very poor appetite. Had issues with constipation, nausea, vomiting with oxycodone. That has since resolved. Reports some occasional chills and night sweats. No documented fevers. Denies chest pain or shortness of breath. Has had some lightheadedness and dizziness with standing however no syncopal event. No diarrhea, bright red bleeding per rectum, or dark tarry stools. Denies urinary symptoms. In the ED, labs show Hgb 11.4, platelet 95K, Na+ 132, MG +1.7, AST 64, alk phos 235. Patient received 2 doses of Dilaudid 1 mg IV, ketorolac 15 mg IV, magnesium replacement, IV Zofran, IVF. Patient reports almost complete relief of the pain since receiving treatments in the ED. Allergies Allergy/AdvReac Type Severity Reaction Status Date / Time No Known Allergies Allergy Verified 02/21/21 16:29 Home Medications Medication Instructions Recorded Confirmed Type aspirin 81 mg PO QAM 01/16/21 02/21/21 History citalopram 20 mg PO QAM 01/16/21 02/21/21 History gemfibrozil 600 mg PO BID 01/16/21 02/21/21 History lisinopril-hydrochlorothiazide 1 tab PO QAM 01/16/21 02/21/21 History cyclobenzaprine 10 mg PO TID PRN 02/06/21 02/21/21 History docusate sodium 100 mg PO BID 02/06/21 02/21/21 History omeprazole 20 mg PO DAILY PRN 02/06/21 02/21/21 History oxycodone 10 mg PO Q6H PRN 02/06/21 02/21/21 History senna 8.6 mg PO DAILY 02/06/21 02/21/21 History pantoprazole 40 mg PO BID 02/21/21 02/21/21 History Past Med/Surg History Medical History Anemia Anxiety GERD (gastroesophageal reflux disease) HLD (hyperlipidemia) HTN (hypertension) Metastatic adenocarcinoma Stomach ulcer Surgical History History of esophagogastroduodenoscopy (EGD) History of surgery on arm RT Family History Father Heart disease Other No family history of adverse response to anesthesia Social History Smoking Status: Former smoker Tobacco Type: Cigarettes Second Hand Exposure: No; Hx Alcohol Use: No Preferred Language: Indonesian Communication Ability: Effective Parish Nurse Required: No Beliefs That Will Affect Care: None Current Living Situation: Spouse Feels Safe at Home: Yes Assistive Devices: Glasses Review of Systems Review of Systems: ROS per HPI, all other systems reviewed and negative Physical Exam Physical Exam: please refer to Dr. Melton's addendum for physical exam Results & Data Results & Data ([facility]) Vital Signs (Past 12 Hours) Vital Signs Temp Pulse Resp BP Pulse Ox 02/21/21 17:00 83 20 119/66 96 02/21/21 16:57 84 15 98 02/21/21 16:55 89 21 135/70 99 02/21/21 16:18 36.4 C L 93 H 22 122/70 100 Laboratory Results Short CBC 02/21/21 Range/Units 17:00 WBC 7.69 (4.8-10.8) K/uL Hgb 11.4 L (14.0-18.0) g/dL Hct 34.2 L (42-52) % Plt Count 95 L (130-400) K/uL BMP 02/21/21 17:00 Sodium 132 L Potassium 4.1 Chloride 100 Carbon Dioxide 22 BUN 22 H Creatinine 1.12 Glucose 157 H Calcium 9.6 Liver Function 02/21/21 Range/Units 17:00 Total Bilirubin 0.9 (0.2-1) mg/dl AST 64 H (15-37) U/L ALT 60 (12-78) U/L Alkaline Phosphatase 235 H (45-117) U/L Albumin 3.0 L (3.4-5.0) gm/dl Code Status & VTE Plan Code Status Patient is a full code as per Dr. Melton's discussion with him. VTE Prophylaxis Plan VTE Prophylaxis will be ordered: Yes Supervising Physician Co-Signing Physician Notes Patient is a 55-year-old male with history of metastatic disease, hypertension, hyperlipidemia and other medical problems presents with intractable back pain. Patient was recently diagnosed to have a pathological right eighth rib and T11 fractures. He describes pain as sharp, nonradiating, 9/10 intensity, worsens with any movement, denies any relieving factors. He was using his oral pain medications which did not control his pain. He admits to having poor oral intake secondary to inability to move secondary to pain. Also admits to having nausea, vomiting and constipation secondary to his pain medications. Please review HPI for complete details of presentation. Physical Exam: Vitals signs as noted above General Appearance:Moderately built and nourished, no apparent distress Head: normocephalic, Atraumatic Eyes: normal inspection, EOMI Neck: supple, Trachea midline Respiratory/Chest: Normal breath sounds, CTA, No accessory muscle use, Right rib tenderness. Cardiovascular: S1, S2, No murmur Abdomen/GI:Soft, Non tender, Bowel sounds present Back : Tenderness mid thoracic region Extremities/Musculoskeletal:normal inspection, no edema Neurologic/Psych:AAOX3, grossly no focal neurological deficits Skin: normal color, warm Metastatic disease (Adeno Carcinoma--Unknown primary ) Intractable pain secondary to pathological fractures Hyponatremia, hypomagnesemia Anemia of chronic disease Thrombocytopenia Elevated CEA CA 19-9 pending Hyperglycemia--check A1c to rule out diabetes Agree with the consulting radiation oncology, pain management Continue bowel regimen to prevent constipation Bone scan ordered as recommended by primary oncology IV fluids for dehydration Agree with holding HCTZ We will start on Lovenox SQ for DVT prophylaxis Monitor platelet count Monitor LFTs Recheck magnesium in the morning I personally reviewed the record. Patient is interviewed and examined at bedside. Patient's care is coordinated with Estefania Herndon [employer]ELESAL[employer] CONSULTANT. Please refer to the documentation above for details of patient's presentation and for discussion of other issues.
[2021-02-21] MEDS ORDERED: ONDANSETRON INJ 2 MG/ML 2 ML VIAL IV PRN (20:24)
[2021-02-21] MEDS ORDERED: oxyCODONE HCL IR 5 MG TAB (IMMEDIATE RELEASE) PO PRN (20:24)
[2021-02-21] MEDS ORDERED: ACETAMINOPHEN 325 MG TAB PO PRN (20:24)
[2021-02-21] MEDS ORDERED: POLYETHYLENE (MIRALAX) 17 GM PACK PO PRN (20:24)
[2021-02-21] MEDS: SODIUM CHLORIDE 0.9% 1000ML 1,000 ML IV SCH (20:58)
[2021-02-21] MEDS: HYDROmorphone INJ 1 MG/ML SYRINGE IV PRN (20:58)
[2021-02-21] MEDS: PANTOprazole 40 MG TAB PO SCH (22:16)
[2021-02-21] MEDS: DOCUSATE SODIUM 100 MG CAP PO SCH (22:16)
[2021-02-22] MEDS: HYDROmorphone INJ 1 MG/ML SYRINGE IV PRN ×10 (00:37→23:26)
[2021-02-22 06:00] LABS: Hematocrit (blood only) 32.2 % (42-52); Hemoglobin 10.3 g/dL (14.0-18.0); Mean Corpuscular Hemoglobin 25.6 pg (25-34); Mean Corpuscular Volume 80.1 fL (80-100); RDW Coefficient of Variation 14.3 % (11.5-14.5); RDW Standard Deviation 41.9 fL (36.4-46.3); Red Blood Count 4.02 M/uL (4.7-6.1); White Blood Count 6.38 K/uL (4.8-10.8)
[2021-02-22] MEDS: LIDOCAINE 5% 1 PATCH TD SCH (06:01)
[2021-02-22 06:09] LABS: Mean Platelet Volume 9.9 fL (7.4-10.4); Platelet Count 98 K/uL (130-400)
[2021-02-22 06:25] LABS: Estimated Average Glucose 140 mg/dl; Hemoglobin A1C 6.5 % (4.5-5.6)
[2021-02-22 06:39] LABS: Albumin Level 2.6 gm/dl (3.4-5.0); BUN Creatinine Ratio 22.6 (10-20); Bilirubin Direct 0.3 mg/dl (0-0.2); Calcium 8.2 mg/dl (8.5-10.1); Creatinine Clr Calc Pharmacy 99.3 ml/min; Est GFR (African American) 106.6 ml/min; Potassium 4.9 mmol/L (3.5-5.1)
[2021-02-22 06:53] LABS: Bilirubin,Total 0.8 mg/dl (0.2-1); Total Protein 6.5 gm/dl (6.4-8.2)
--- NOTE | 2021-02-22 08:22 | Pain Management Consultation ---
Date of Consultation February 22, 2021 Assessment & Plan (1) Pathologic thoracic fracture: (2) Pathologic rib fracture: (3) Metastatic adenocarcinoma: (4) Intractable back pain: Continue Lidocaine patch Continue Oxycodone 10mg x 4 hours PRN pain I have initiated the patient on Fentanyl patch 12mcg/hr. Side effect profile reviewed with the patient and his . Will follow up with the patient tomorrow to determine efficacy History of Present Illness Attending Physician: Wilner Condon DO History of Present Illness Mr. Casillas is a 55 year old male that has been seen in the [facility] for intractable back pain. Patient states that the pain is located in the right lower thoracic region. He does have adenocarcinoma with metastasis at the T11 and right 8th rib. Patient has been given Oxycodone 10mg and has been taking it x 4 hours PRN pain. He has not found the Oxycodone effective as diminishing his pain to a reasonable level. Over the past two months the back pain has been poorly controlled. No radicular symptoms. He has not taken opioids prior to the recent oxycodone. The pain is worsened with twisting or going from supine to sitting. Laying still provides moderate pain relief. Patient denies any chest pain, drowsiness, constipation. Pain Assessment Full Body Front + Back: 1. Allergies Allergy/AdvReac Type Severity Reaction Status Date / Time No Known Allergies Allergy Verified 02/21/21 16:29 Home Medications Medication Instructions Recorded Confirmed Type aspirin 81 mg PO QAM 01/16/21 02/21/21 History citalopram 20 mg PO QAM 01/16/21 02/21/21 History gemfibrozil 600 mg PO BID 01/16/21 02/21/21 History lisinopril-hydrochlorothiazide 1 tab PO QAM 01/16/21 02/21/21 History cyclobenzaprine 10 mg PO TID PRN 02/06/21 02/21/21 History docusate sodium 100 mg PO BID 02/06/21 02/21/21 History omeprazole 20 mg PO DAILY PRN 02/06/21 02/21/21 History oxycodone 10 mg PO Q6H PRN 02/06/21 02/21/21 History senna 8.6 mg PO DAILY 02/06/21 02/21/21 History pantoprazole 40 mg PO BID 02/21/21 02/21/21 History Patient History Medical History Anemia Anxiety GERD (gastroesophageal reflux disease) HLD (hyperlipidemia) HTN (hypertension) Metastatic adenocarcinoma Stomach ulcer Surgical History History of esophagogastroduodenoscopy (EGD) History of surgery on arm RT Family History Father Heart disease Other No family history of adverse response to anesthesia Social History Smoking Status: Former smoker Tobacco Type: Cigarettes Second Hand Exposure: No; Do You Dip or Chew Tobacco: Yes; Tobacco Cessation Education Requested by Patient: Yes Hx Alcohol Use: No Hx Substance Use: No Preferred Language: Syriac Communication Ability: Effective Air Defense Specialist Required: No Beliefs That Will Affect Care: None Current Living Situation: Alone and Spouse Other Information That Helps Us Care for You: No Feels Safe at Home: Yes Safety Concerns: Feels Safe At This Time Assistive Devices: Glasses Assistive Devices Comment: reading glasses Physical Exam Physical Exam: GENERAL: This is a 55 year old male. Accompanied by his . Patient appears in moderate pain with positional changes. HEAD/FACE: Normocephalic and atraumatic. EYES: No drainage or conjunctival injection. ENT: Nose without bleeding or discharge. Oral mucosa moist. RESPIRATORY: Patient with unlabored breathing. No signs of respiratory distress. CHEST/AXILLA: Chest movement symmetrical. No deformities noted. BACK: Normal lumbar lordosis. There is no midline tenderness. Tenderness is located along the right flank and is nonfocal. I did move the lidocaine patch over to the right flank. SKIN: Wing[place], warm and dry. No rash noted. MS/EXTREMITY: No swelling, no deformities. Moving extremities appropriately. NEURO: Alert and appears oriented. Speech is fluent. Cranial Nerves are grossly intact. PSYCH: Alert, slightly short tempered. Frustrated. Results (Pain Clinic) Diagnostic Review MRI Findings: MR abdomen wo/w con CLINICAL HISTORY: metastatic disease, eval liver lesion noted on CT TECHNIQUE: Imaging was performed prior to and following IV contrast injection. COMPARISON STUDY: No previous studies for comparison. Correlation is made with CT of the abdomen and pelvis performed on January 16, 2021. FINDINGS: Evaluation of the liver shows normal size and signal of its parenchyma. No intrahepatic biliary dilatation is seen. There is 2.8 x 2.1 x 2.8 cm high T2 signal lesion within subcapsular aspect of the left lobe of the liver corresponding to the lesion which was also seen on re cent CT of the abdomen. This lesion is T1 hypointense and show restricted diffusion. Progressive enhancement is seen after intravenous contrast administration. Gallbladder is contracted with multiple punctate areas of low signal within its lumen which could represent gallstones. Minimal gallbladder wall thickening is seen. Pancreas, spleen and bilateral adrenal glands are unremarkable. Evaluation is slightly limited due to motion artifact. No evidence of hydronephrosis. Few parapelvic cysts are seen bilaterally. Small cortical cyst are seen within left kidney. Visualized portion of the bowel is nondilated. Visualized portion of abdominal aorta shows no evidence of aneurysmal dilatation. Asymmetrical bone marrow enhancement of T11 vertebra is seen on this nondedicated exam and might represent metastatic lesion versus other etiology. IMPRESSION: 1. Focal lesion within left lobe of the liver most likely represent hemangioma, however neoplastic process cannot be completely ruled out. Short-term follow-up in 6 months is suggested. 2. Abnormal enhancement of the T11 vertebral body, incompletely evaluated on this nondedicated exam and might represent metastasis versus other etiology. Further evaluation with MRI of the lumbar spine might be considered. 3. Cholelithiasis. Contracted gallbladder. Limited evaluation. ACT 112: Positive. There are findings on this exam that require communication between the performing entity and the patient following Patient Test Result Information Act ([place] Act 112) guidelines. The above report was generated using voice recognition software. It may contain grammatical, syntax or spelling errors. Electronically signed by: Gela Sams DO 01/18/2021 11:[address] Findings: CT ANGIOGRAPHY OF THE CHEST, PULMONARY EMBOLUS PROTOCOL CLINICAL HISTORY: R lateral/anterior rib pain/RUQ pain into back COMPARISON STUDY: Chest radiograph January 21, 2013. TECHNIQUE: Following IV administration of 110 mL of Optiray, helical axial images of the chest were obtained utilizing the pulmonary embolus protocol. Maximal intensity projections and sagittal and coronal reformats were viewed on an independent 3D workstation. IV contrast was administered without complication. Automated exposure control was utilized for the study. A dose lowering technique was utilized adhering to the principles of ALARA. CT DOSE: 1518.90 mGycm FINDINGS: No pulmonary emboli are identified. There is no thoracic aortic dissection. Mild cardiomegaly is noted. There is no pericardial effusion. Note is made of a few prominent asymmetrically enlarged right supraclavicular lymph nodes that measure up to 9 mm in short axis diameter. There is mild mediastinal and bilateral hilar lymphadenopathy. Numerous mildly enlarged lymph nodes are noted. Index left hilar node measures 2.4 x 1.5 cm. Index subcarinal node measures 1.6 x 1.6 cm. Index right hilar node measures 1.8 x 1.5 cm. A few perifissural right lung nodules measure up to 6 mm. These are likely benign. There is no pneumothorax or pleural effusion. Note is made of a lytic lesion within the T11 vertebral body that measures 2 cm. There is associated pathologic fracture involving the inferior endplate of this vertebral body. No retropulsion. No epidural extension is identified. Note is also made of subtle lucency and sclerosis within the lateral right eighth rib with suspected pathologic fracture. The abdomen and pelvis will be reported separately. IMPRESSION: 1. No pulmonary emboli identified. 2. Multiple mildly enlarged mediastinal and bilateral hilar lymph nodes. In addition, 2 cm lytic lesion within T11 with pathologic fracture and a suspected right eighth rib lesion with pathologic fracture. These findings are highly suggestive of a neoplastic process and favor metastatic disease. ACT 112: Positive. There are findings on this exam that require communication between the performing entity and the patient following Patient Test Result Information Act ([place] Act 112) guidelines. Electronically signed by: Bobo Crespo M.D. 01/16/2021 10:37 AM
[2021-02-22] MEDS ORDERED: fentaNYL 12 MCG/HR TDSY TD SCH (08:30)
[2021-02-22] MEDS: lisinopril 20 MG TAB PO SCH (08:39)
[2021-02-22] MEDS: SENNA 8.6 MG TAB PO SCH (08:40)
[2021-02-22] MEDS: CITALOPRAM 20 MG TAB PO SCH (08:40)
[2021-02-22] MEDS: ASPIRIN 81 MG ECTAB PO SCH (08:40)
[2021-02-22] MEDS: ENOXAPARIN INJ 40 MG/0.4 ML SYR SQ SCH (08:41)
[2021-02-22] MEDS: PANTOprazole 40 MG TAB PO SCH ×2 (08:41→20:36)
[2021-02-22] MEDS: DOCUSATE SODIUM 100 MG CAP PO SCH ×2 (08:41→20:36)
[2021-02-22] MEDS: oxyCODONE HCL IR 5 MG TAB (IMMEDIATE RELEASE) PO PRN ×2 (09:47→15:10)
[2021-02-22] MEDS: SODIUM CHLORIDE 0.9% 1000ML 1,000 ML IV SCH ×2 (09:50→20:36)
[2021-02-22] MEDS ORDERED: LORazepam 1 MG/2 ML VIAL IV PRN (11:00)
--- NOTE | 2021-02-22 11:07 | Radiation OncologyConsultation ---
Date of Consultation February 22, 2021 Assessment & Plan (1) Metastatic adenocarcinoma: Assessment: Mr. Casillas is a 55-year-old gentleman who presents with metastatic adenocarcinoma of unknown primary. The patient did have a biopsy of a celiac lymph node which did reveal metastatic adenocarcinoma. The patient did have a significant work-up which did not reveal any obvious evidence of a primary malignancy. Imaging studies did reveal metastatic disease involving the T11 vertebral body and right 8th rib. The patient was seen by Dr. Mckeon from medical oncology in the outpatient setting who referred the patient to the hospital due to significant pain involving his back. The patient has been admitted to the hospital for pain management. Pain management team has seen the patient and has started the patient on pain medications. The patient does continue to have significant pain involving his mid back. I am now seeing the patient in consultation to discuss the role of radiation therapy. Recommendation: Palliative external beam radiation therapy to thoracic spine including T11 vertebral body. 300 cGy, 10 fractions, 3000 cGy total. Plan: 1. Plan for CT simulation tomorrow. Plan to deliver first fraction of r adiation therapy either or Saturday. I have discussed the case with Dr. Condon and they will plan to premedicate the patient to help with making him comfortable for CT simulation. 2. Continue pain management protocol as per primary medical team. 3. Patient and family encouraged to call us with any further questions or concerns. Rationale/Explanation of Treatment: I explained the indications, alternatives, benefits, risks and side effects of external beam radiation therapy. I then discussed radiation therapy side effects for treatment which include, but are not limited to, skin erythema, dry/moist desquamation of the skin, hyperpigmentation, telangiectasias, damage to the heart and development of cardiovascular disease, damage to the lungs including radiation pneumonitis, pulmonary fibrosis, decrease in pulmonary function, cough, fistula formation, tracheal stenosis, esophageal stenosis, esophageal perforation, dysphagia, nausea, vomiting, ulcers in stomach/bowel, gastritis, gastric perforation, bowel perforation, bowel obstruction, weight loss, dehydration, decreased appetite, liver damage including hepatitis and liver failure, damage to the kidneys including decreased renal function and renal failure, spinal cord damage including myelopathy, fatigue and secondary malignancy. The patient and had multiple questions which were answered to their full satisfaction. Thank you for allowing us to participate in the care of this patient. This chart was completed in part utilizing Dragon Speech Voice Recognition software. Attempts were made to minimize the grammatical errors, random word insertions, pronoun errors and incomplete sentences. Any formal questions or concerns about the content, text or information contained within the body of this dictation should be directly addressed to the provider for clarification. Sunny Mckeon MD Department of Radiation Oncology [facility] History of Present Illness Attending Physician: Wilner Condon DO History of Present Illness 01/16/2021. Patient admitted to [facility] due to acute pain and imaging findings. 01/16/2021. Chest CTA. IMPRESSION: 1. No pulmonary emboli identified. 2. Multiple mildly enlarged mediastinal and bilateral hilar lymph nodes. In addition, 2 cm lytic lesion within T11 with pathologic fracture and a suspected right eighth rib lesion with pathologic fracture. These findings are highly suggestive of a neoplastic process and favor metastatic disease. 01/16/2021. CT of abdomen/pelvis. IMPRESSION: 1. Findings are consistent with metastatic disease. 2. There are destructive bony lesions within the right lateral 8th rib and body of T11 with associated pathologic fractures. 3. There are pathologically enlarged lymph nodes in the upper abdomen, inferior mediastinum, and left periaortic region. 4. The gastric wall appears thickened and featureless. Although not well evaluated by CT, a primary gastric neoplasm is a strong differential consideration. Correlate with endoscopy. 5. A 2.7 cm left hepatic lobe lesion is incompletely characterized but favors a hemangioma. This could be further assessed with a nonemergent dedicated CT or MRI of the liver. 6. Cholelithiasis. 7. Hepatic steatosis. 8. Additional findings as above. 01/17/2021. MRI of abdomen. IMPRESSION: 1. Focal lesion within left lobe of the liver most likely represent hemangioma, however neoplastic process cannot be completely ruled out. Short-term follow-up in 6 months is suggested. 2. Abnormal enhancement of the T11 vertebral body, incompletely evaluated on this nondedicated exam and might represent metastasis versus other etiology. Further evaluation with MRI of the lumbar spine might be considered. 3. Cholelithiasis. Contracted gallbladder. Limited evaluation. 01/17/2021. Upper EGD. No significant findings. 01/17/2021. Stomach, biopsy. Stomach, biopsy: - Helicobacter pylori gastritis - Negative for intestinal metaplasia, dysplasia and malignancy. 02/07/2021. Upper EGD and EUS and colonoscopy by Dr. Gonzalez. No definite evidence of malignancy noted. 02/07/2021. Lymph node, celiac, endoscopic fine-needle aspiration: - Metastatic adenocarcinoma (see comment) Comment: The FNA specimen shows abundant tumor within the lymph node. The tumor shows a highly pleomorphic adenocarcinoma. Immunostaining is positive for CK7 and focal weak CDX-2. This immunoprofile w ould be most consistent with gastric adenocarcinoma, pancreatic adenocarcinoma, or cholangiocarcinoma. Clinical correlation is required to further assist as to the site of origin. Additional tumor is present in the cell block if any additional studies or molecular tests are requested. 02/21/2021. Medical oncology consultation with Dr. Brayan Mckeon. Dr. Mckeon referred patient to hospital due to significant pain involving lower back. 02/21/2021. Patient admitted to [facility] for work-up and evaluation pain management. 02/22/2021. Pain management consultation. Recommendation is for oxycodone and fentanyl. Allergies Allergy/AdvReac Type Severity Reaction Status Date / Time No Known Allergies Allergy Verified 02/21/21 16:29 Home Medications Medication Instructions Recorded Confirmed Type aspirin 81 mg PO QAM 01/16/21 02/21/21 History citalopram 20 mg PO QAM 01/16/21 02/21/21 History gemfibrozil 600 mg PO BID 01/16/21 02/21/21 History lisinopril-hydrochlorothiazide 1 tab PO QAM 01/16/21 02/21/21 History cyclobenzaprine 10 mg PO TID PRN 02/06/21 02/21/21 History docusate sodium 100 mg PO BID 02/06/21 02/21/21 History omeprazole 20 mg PO DAILY PRN 02/06/21 02/21/21 History oxycodone 10 mg PO Q6H PRN 02/06/21 02/21/21 History senna 8.6 mg PO DAILY 02/06/21 02/21/21 History pantoprazole 40 mg PO BID 02/21/21 02/21/21 History Patient History Medical History Anemia Anxiety GERD (gastroesophageal reflux disease) HLD (hyperlipidemia) HTN (hypertension) Metastatic adenocarcinoma Stomach ulcer Surgical History History of esophagogastroduodenoscopy (EGD) History of surgery on arm RT Family History Father Heart disease Other No family history of adverse response to anesthesia Social History Smoking Status: Former smoker Tobacco Type: Cigarettes Second Hand Exposure: No; Do You Dip or Chew Tobacco: Yes; Tobacco Cessation Education Requested by Patient: Yes Hx Alcohol Use: No Hx Substance Use: No Preferred Language: Cambodian Communication Ability: Effective Music Video Director Required: No Beliefs That Will Affect Care: None Current Living Situation: Alone and Spouse Other Information That Helps Us Care for You: No Feels Safe at Home: Yes Safety Concerns: Feels Safe At This Time Assistive Devices: Glasses Assistive Devices Comment: reading glasses Review of Systems Review of Systems: Significant back pain involving mid to lower back. Patient denies any significant neurologic deficits. Physical Exam Constitutional: WD/WN, vitals as above well developed and well nourished Eyes: PERRL, conjunctivae normal, anicteric sclerae ENMT: external ear and nose normal, oropharynx normal Neck: trachea midline, no thyromegaly Respiratory: normal respiratory effort, lungs clear to auscultation Cardiovascular: RRR, no murmur, no edema Gastrointestinal (Abdomen): normal bowel sounds, soft, nontender, no hepatosplenomegaly Musculoskeletal: no cyanosis or clubbing, extremities motor strength 5/5 Skin: no rashes, warm and dry Neurologic: patellar DTR's 2+ bilat, sensation intact and PERRL, EOMI, accommodation nl, no face palsy, no dysarthria Psychiatric: A+Ox3, euthymic affect
--- NOTE | 2021-02-22 13:19 | Electrocardiogram Report ---
Test Reason : Blood Pressure : / mmHG Vent. Rate : 077 BPM Atrial Rate : 077 BPM P-R Int : 148 ms QRS Dur : 086 ms QT Int : 398 ms P-R-T Axes : 037 036 010 degrees QTc Int : 450 ms Normal sinus rhythm Normal ECG When compared with ECG of 16-JAN-2021 09:01, No significant change was found Confirmed by José Luis Mariscal ([id number]) on 02/22/2021 1:19:41 PM Referred By: Brayan Mckeon Confirmed By:José Luis Mariscal
--- NOTE | 2021-02-22 14:45 | Nuclear Medicine Report ---
NM bone scan whole body CLINICAL HISTORY: adenocarcinoma, T11 pathologic fracture COMPARISON STUDY: CT scan of chest dated 01/16/2021 FINDINGS: The patient was injected with 25.7 mCi of technetium 99m MDP. Three-hour delayed whole-body images were acquired. There are multiple foci of abnormal increased activity. These include bilateral ribs, the left calvar ium, the left humeral neck, the right inferior scapular tip, multiple thoracic vertebral bodies, karey c bones and right acetabulum, as well as the subtrochanteric proximal left femur. There is also equiv ocal focus of increased activity within the mid left femoral shaft. IMPRESSION: Multiple foci of abnormal increased activity consistent with metastatic disease ACT 112: Negative or not required by law. Electronically signed by: Miguel Florez M.D. 02/22/2021 2:44 PM
--- NOTE | 2021-02-22 14:54 | Hospitalist Progress Note ---
Date of Service February 22, 2021 Assessment & Plan (1) Intractable back pain: (2) Pathologic rib fracture: (3) Pathologic thoracic fracture: (4) Metastatic adenocarcinoma: -Patient presenting by referral of outpatient oncology office for evaluation of intractable back pain. Patient recently admitted to [facility] 01/16-01/18 when he was found to have new metastatic disease and pathological fractures of the right eighth rib and T11. Patient underwent EGD and was found to have a nonbleeding ulcer, pathology subsequently showed H. pylori and patient has completed triple therapy. As an outpatient, patient underwent EUS with biopsy of a celiac lymph node that shows adenocarcinoma however primary remains unknown. -outpatient oncologist - Dr. Brayan Mckeon -radiation oncology and pain management consults -check CEA and Ca 19-9 -bone scan -Dilaudid 1mg IV q3h PRN - up titrate as needed -Sedation for studies c Rad Onc tomorrow Labs checked ROS-No Headache, No Visual Changes, No Nausea, No Vomiting, No Fever, No Chills, No Neck Pain or Stiffness, No Chest Pain, No Palpitations, No SOB, No ANNA, No Cough, No Sputum, No Wheezing, No Abdominal Pain, No Diarrhea, No Hematemesis, No Hemoptysis, No Unexpected Weight Loss, No Flank pain, No Melena, No Hematochezia, No Frequency, No Urgency, No Burning, No Hematuria, No Rashes, No Diaphoresis. Appetite is Normal, +Mod Back Pain Physical Exam Gen-AAO x 3, Mod distress, Afebrile Head-NCAT, EOMI, PERRLA, Anicteric Sclera, No Posterior Pharyngeal Erythema Neck-Supple, No JVD, No Thyromegaly, No Masses, No LAD, No Bruits Lungs-Clear to Auscultation Bilaterally, No Rales, No Rhonchi, No Wheezing, No Crepitus Chest-No S4, +S1, +S2, No S3, No Murmurs, No Rubs, No Gallops, No Ectopy Abdomen-Soft, Bowel Sounds Present, Non Tender, Non Distended, No Hepatomegaly, No Splenomegaly, No Palpable Masses, No Rebound, No Rigidity, No Guarding Musculoskeletal-Pain c Range of Motion of the back, No CVAT Extremities-No Cyanosis, No Clubbing, No Edema Nuero-Cranial Nerves II-XII grossly intact, Motor WNL, DTRs WNL, Strength WNL, Non Focal Psych-Normal Mood (5) Hyponatremia: (6) Hypomagnesemia: -mild, Na+ 132, Mg+ 1.7 -IVF, hold HCTZ (7) Thrombocytopenia: (8) Anemia: -platelets 95K, hgb 11.4 -Likely due to underlying malignancy -Monitor CBC (9) Elevated LFTs: -AST 64, alk phos 235 -Likely due to underlying malignancy -Hold gemfibrozil, monitor LFTs (10) HTN (hypertension): -BP controlled, continue lisinopril -Hold HCTZ due to hyponatremia (11) HLD (hyperlipidemia): -Holding gemfibrozil as above (12) DVT prophylaxis: Lovenox SQ Monitor Platelets Admission and Anticipated Discharge Date Admission Date: February 21, 2021 Results & Data Results & Data ([facility]) Vital Signs (Past 12 Hours) Vital Signs Temp Pulse Resp BP Pulse Ox 02/22/21 06:38 36.8 C 73 18 121/79 95
[2021-02-22] MEDS ORDERED: diphenhydrAMINE 50 MG/ML VIAL IV PRN (15:04)
[2021-02-22] MEDS: CHECK fentaNYL PATCH PLACEMENT SCH ×2 (16:41→23:27)
[2021-02-23] MEDS: HYDROmorphone INJ 1 MG/ML SYRINGE IV PRN ×8 (02:24→21:59)
[2021-02-23 06:15] LABS: Hematocrit (blood only) 31.5 % (42-52); Hemoglobin 10.3 g/dL (14.0-18.0); Mean Corpuscular Hemoglobin 25.6 pg (25-34); Mean Corpuscular Hgb Conc 32.7 g/dL (32-36); Mean Corpuscular Volume 78.4 fL (80-100); Nucleated RBC # (auto) 0.02 K/uL (0-0); Nucleated RBC % (auto) 0.3 %; RDW Coefficient of Variation 14.3 % (11.5-14.5); RDW Standard Deviation 40.8 fL (36.4-46.3); Red Blood Count 4.02 M/uL (4.7-6.1); White Blood Count 6.83 K/uL (4.8-10.8)
[2021-02-23 06:32] LABS: Mean Platelet Volume 9.8 fL (7.4-10.4); Platelet Count 88 K/uL (130-400)
[2021-02-23 06:42] LABS: BUN Creatinine Ratio 17.9 (10-20); Calcium 9.2 mg/dl (8.5-10.1); Creatinine Clr Calc Pharmacy 98.2 ml/min; Est GFR (African American) 105.2 ml/min; Est GFR (Non-African American) 90.8 ml/min; Potassium 4.6 mmol/L (3.5-5.1)
[2021-02-23] MEDS: CHECK fentaNYL PATCH PLACEMENT SCH ×2 (07:21→17:13)
[2021-02-23] MEDS: ASPIRIN 81 MG ECTAB PO SCH (08:56)
[2021-02-23] MEDS: SENNA 8.6 MG TAB PO SCH (08:56)
[2021-02-23] MEDS: lisinopril 20 MG TAB PO SCH (08:57)
[2021-02-23] MEDS: CITALOPRAM 20 MG TAB PO SCH (08:57)
--- NOTE | 2021-02-23 08:57 | Pain Management Progress Note ---
Date of Service February 23, 2021 Assessment & Plan (1) Pathologic thoracic fracture: Admission and Anticipated Discharge Date Admission Date: February 21, 2021 Patient not seen. Not in room - having testing done. He has used 10mg IV Dilaudid over the last 24 hours for pain. If he is tolerating the Fentanyl Patch I would recommend further increasing the dose to 25mcg/hr. I will follow up with the patient tomorrow.
[2021-02-23] MEDS: LIDOCAINE 5% 1 PATCH TD SCH (08:58)
[2021-02-23] MEDS: DOCUSATE SODIUM 100 MG CAP PO SCH ×2 (08:58→19:55)
[2021-02-23] MEDS: PANTOprazole 40 MG TAB PO SCH ×2 (08:58→19:55)
[2021-02-23] MEDS: ENOXAPARIN INJ 40 MG/0.4 ML SYR SQ SCH (08:58)
[2021-02-23] MEDS: oxyCODONE HCL IR 5 MG TAB (IMMEDIATE RELEASE) PO PRN ×3 (09:57→21:00)
--- NOTE | 2021-02-23 10:53 | Hospitalist Progress Note ---
Date of Service February 23, 2021 Assessment & Plan (1) Intractable back pain: (2) Pathologic rib fracture: (3) Pathologic thoracic fracture: (4) Metastatic adenocarcinoma: -Patient presenting by referral of outpatient oncology office for evaluation of intractable back pain. Patient recently admitted to [facility] 01/16-01/18 when he was found to have new metastatic disease and pathological fractures of the right eighth rib and T11. Patient underwent EGD and was found to have a nonbleeding ulcer, pathology subsequently showed H. pylori and patient has completed triple therapy. As an outpatient, patient underwent EUS with biopsy of a celiac lymph node that shows adenocarcinoma however primary remains unknown. -outpatient oncologist - Dr. Brayan Mckeon -radiation oncology and pain management consults -check CEA and Ca 19-9 -bone scan Mets all over -Sedation for studies c Rad Onc today Labs checked ROS-No Headache, No Visual Changes, No Nausea, No Vomiting, No Fever, No Chills, No Neck Pain or Stiffness, No Chest Pain, No Palpitations, No SOB, No ANNA, No Cough, No Sputum, No Wheezing, No Abdominal Pain, No Diarrhea, No Hematemesis, No Hemoptysis, No Unexpected Weight Loss, No Flank pain, No Melena, No Hematochezia, No Frequency, No Urgency, No Burning, No Hematuria, No Rashes, No Diaphoresis. Appetite is Normal, +Mod Back Pain Physical Exam Gen-AAO x 3, Mod distress, Afebrile Head-NCAT, EOMI, PERRLA, Anicteric Sclera, No Posterior Pharyngeal Erythema Neck-Supple, No JVD, No Thyromegaly, No Masses, No LAD, No Bruits Lungs-Clear to Auscultation Bilaterally, No Rales, No Rhonchi, No Wheezing, No Crepitus Chest-No S4, +S1, +S2, No S3, No Murmurs, No Rubs, No Gallops, No Ectopy Abdomen-Soft, Bowel Sounds Present, Non Tender, Non Distended, No Hepatomegaly, No Splenomegaly, No Palpable Masses, No Rebound, No Rigidity, No Guarding Musculoskeletal-Pain c Range of Motion of the back, No CVAT Extremities-No Cyanosis, No Clubbing, No Edema Nuero-Cranial Nerves II-XII grossly intact, Motor WNL, DTRs WNL, Strength WNL, Non Focal Psych-Normal Mood (5) Hyponatremia: (6) Hypomagnesemia: -mild, Na+ 132, Mg+ 1.7 -IVF, hold HCTZ (7) Thrombocytopenia: (8) Anemia: -platelets 95K, hgb 11.4 -Likely due to underlying malignancy -Monitor CBC (9) Elevated LFTs: -AST 64, alk phos 235 -Likely due to underlying malignancy -Hold gemfibrozil, monitor LFTs (10) HTN (hypertension): -BP controlled, continue lisinopril -Hold HCTZ due to hyponatremia (11) HLD (hyperlipidemia): -Holding gemfibrozil as above (12) DVT prophylaxis: Lovenox SQ Monitor Platelets Admission and Anticipated Discharge Date Admission Date: February 21, 2021 Results & Data Results & Data ([facility]) Vital Signs (Past 12 Hours) Vital Signs Temp Pulse Resp BP BP Pulse Ox 02/23/21 08:49 36.8 C 84 16 127/69 93 02/23/21 07:27 36.7 C 83 18 109/73 94 02/22/21 23:59 36.9 C 79 16 118/68 96
[2021-02-23] MEDS ORDERED: fentaNYL 25 MCG/HR TDSY TD SCH (11:00)
--- NOTE | 2021-02-23 12:00 | Discharge Summary ---
Date of Service February 23, 2021 Admission HPI Per Admitting Provider 55-year-old male with PMH HLD, HTN, GERD, recently diagnosed adenocarcinoma of unknown primary, and other problems listed below who presents to the ED by referral of outpatient oncologist for evaluation and management of intractable back pain. Patient recently admitted to [facility] 01/16-01/18 when he was found to have new metastatic disease and pathological fractures of the right eighth rib and T11. Patient underwent EGD and was found to have a nonbleeding ulcer, pathology subsequently showed H. pylori and patient has completed triple therapy. As an outpatient, patient underwent EUS with biopsy of a celiac lymph node that shows adenocarcinoma however primary remains unknown. Patient reports worsening mid back pain. He has been taking oxycodone 10 mg without relief. He has had a very poor appetite. Had issues with constipation, nausea, vomiting with oxycodone. That has since resolved. Reports some occasional chills and night sweats. No documented fevers. Denies chest pain or shortness of breath. Has had some lightheadedness and dizziness with standing however no syncopal event. No diarrhea, bright red bleeding per rectum, or dark tarry stools. Denies urinary symptoms. In the ED, labs show Hgb 11.4, platelet 95K, Na+ 132, MG +1.7, AST 64, alk phos 235. Patient received 2 doses of Dilaudid 1 mg IV, ketorolac 15 mg IV, magnesium replacement, IV Zofran, IVF. Patient reports almost complete relief of the pain since receiving treatments in the ED. Admission Exam Per Admitting Provider ROS-No Headache, No Visual Changes, No Nausea, No Vomiting, No Fever, No Chills, No Neck Pain or Stiffness, No Chest Pain, No Palpitations, No SOB, No ANNA, No Cough, No Sputum, No Wheezing, No Abdominal Pain, No Diarrhea, No Hematemesis, No Hemoptysis, No Unexpected Weight Loss, No Flank pain, No Melena, No Hematochezia, No Frequency, No Urgency, No Burning, No Hematuria, No Rashes, No Diaphoresis. Appetite is Normal, +Mod Back Pain Physical Exam Gen-AAO x 3, Mod distress, Afebrile Head-NCAT, EOMI, PERRLA, Anicteric Sclera, No Posterior Pharyngeal Erythema Neck-Supple, No JVD, No Thyromegaly, No Masses, No LAD, No Bruits Lungs-Clear to Auscultation Bilaterally, No Rales, No Rhonchi, No Wheezing, No Crepitus Chest-No S4, +S1, +S2, No S3, No Murmurs, No Rubs, No Gallops, No Ectopy Abdomen-Soft, Bowel Sounds Present, Non Tender, Non Distended, No Hepatomegaly, No Splenomegaly, No Palpable Masses, No Rebound, No Rigidity, No Guarding Musculoskeletal-Pain c Range of Motion of the back, No CVAT Extremities-No Cyanosis, No Clubbing, No Edema Nuero-Cranial Nerves II-XII grossly intact, Motor WNL, DTRs WNL, Strength WNL, Non Focal Psych-Normal Mood Principal Diagnosis (1) Intractable back pain: (2) Pathologic rib fracture: (3) Pathologic thoracic fracture: (4) Metastatic adenocarcinoma: Discharge Exam ROS-No Headache, No Visual Changes, No Nausea, No Vomiting, No Fever, No Chills, No Neck Pain or Stiffness, No Chest Pain, No Palpitations, No SOB, No ANNA, No Cough, No Sputum, No Wheezing, No Abdominal Pain, No Diarrhea, No Hematemesis, No Hemoptysis, No Unexpected Weight Loss, No Flank pain, No Melena, No Hematochezia, No Frequency, No Urgency, No Burning, No Hematuria, No Rashes, No Diaphoresis. Appetite is Normal, +Mod Back Pain Physical Exam Gen-AAO x 3, Mod distress, Afebrile Head-NCAT, EOMI, PERRLA, Anicteric Sclera, No Posterior Pharyngeal Erythema Neck-Supple, No JVD, No Thyromegaly, No Masses, No LAD, No Bruits Lungs-Clear to Auscultation Bilaterally, No Rales, No Rhonchi, No Wheezing, No Crepitus Chest-No S4, +S1, +S2, No S3, No Murmurs, No Rubs, No Gallops, No Ectopy Abdomen-Soft, Bowel Sounds Present, Non Tender, Non Distended, No Hepatomegaly, No Splenomegaly, No Palpable Masses, No Rebound, No Rigidity, No Guarding Musculoskeletal-Pain c Range of Motion of the back, No CVAT Extremities-No Cyanosis, No Clubbing, No Edema Nuero-Cranial Nerves II-XII grossly intact, Motor WNL, DTRs WNL, Strength WNL, Non Focal Psych-Normal Mood Discharge Data Allergies Allergy/AdvReac Type Severity Reaction Status Date / Time No Known Allergies Allergy Verified 02/21/21 16:29 Consultations 02/21/21 17:36 ED Decision to Admit Stat 02/21/21 20:24 Consult Pain Management Routine Consult Radiation Oncology Routine Ordered Studies 02/23/21 CT guide rad therapy chest Routine Current Diagnoses Secondary malignant neoplasm of unspecified site (02/21/21) Anemia, unspecified (02/21/21) Thrombocytopenia, unspecified (02/21/21) Hyperlipidemia, unspecified (02/21/21) Hypomagnesemia (02/21/21) Hypo-osmolality and hyponatremia (02/21/21) Essential (primary) hypertension (02/21/21) Dorsalgia, unspecified (02/21/21) Pathological fracture, other site, initial encounter for fracture (02/21/21) Other specified abnormal findings of blood chemistry (02/21/21) Encounter for prophylactic measures, unspecified (02/21/21) Allergies No Known Allergies Allergy (Verified 02/21/21 16:29) Height/Weight/Isolation Height 5 ft 9 in Weight 92.1 kg Chemistry 02/21/21 02/22/21 02/23/21 17:00 05:40 05:59 Sodium 132 L 134 L 137 Potassium 4.1 4.9 D 4.6 Chloride 100 104 105 Carbon Dioxide 22 26 27 Anion Gap 10.0 4.0 5.0 BUN 22 H 21 H 17 Creatinine 1.12 0.92 0.93 Glucose 157 H 99 98 Hospital Course (1) Intractable back pain: (2) Pathologic rib fracture: (3) Pathologic thoracic fracture: (4) Metastatic adenocarcinoma: -Patient presenting by referral of outpatient oncology office for evaluation of intractable back pain. Patient recently admitted to [facility] 01/16-01/18 when he was found to have new metastatic disease and pathological fractures of the right eighth rib and T11. Patient underwent EGD and was found to have a nonbleeding ulcer, pathology subsequently showed H. pylori and patient has completed triple therapy. As an outpatient, patient underwent EUS with biopsy of a celiac lymph node that shows adenocarcinoma however primary remains unknown. -outpatient oncologist - Dr. Brayan Mckeon -radiation oncology and pain management on case -check CEA and Ca 19-9 -bone scan Mets all over -Sedation for studies c Rad Onc today done, will receive 1 fraction ten dc today Labs checked ROS-No Headache, No Visual Changes, No Nausea, No Vomiting, No Fever, No Chills, No Neck Pain or Stiffness, No Chest Pain, No Palpitations, No SOB, No ANNA, No Cough, No Sputum, No Wheezing, No Abdominal Pain, No Diarrhea, No Hematemesis, No Hemoptysis, No Unexpected Weight Loss, No Flank pain, No Melena, No Hematochezia, No Frequency, No Urgency, No Burning, No Hematuria, No Rashes, No Diaphoresis. Appetite is Normal, +Mod Back Pain Physical Exam Gen-AAO x 3, Mod distress, Afebrile Head-NCAT, EOMI, PERRLA, Anicteric Sclera, No Posterior Pharyngeal Erythema Neck-Supple, No JVD, No Thyromegaly, No Masses, No LAD, No Bruits Lungs-Clear to Auscultation Bilaterally, No Rales, No Rhonchi, No Wheezing, No Crepitus Chest-No S4, +S1, +S2, No S3, No Murmurs, No Rubs, No Gallops, No Ectopy Abdomen-Soft, Bowel Sounds Present, Non Tender, Non Distended, No Hepatomegaly, No Splenomegaly, No Palpable Masses, No Rebound, No Rigidity, No Guarding Musculoskeletal-Pain c Range of Motion of the back, No CVAT Extremities-No Cyanosis, No Clubbing, No Edema Nuero-Cranial Nerves II-XII grossly intact, Motor WNL, DTRs WNL, Strength WNL, Non Focal Psych-Normal Mood (5) Hyponatremia: (6) Hypomagnesemia: -mild, Na+ 132, Mg+ 1.7 -IVF, hold HCTZ (7) Thrombocytopenia: (8) Anemia: -platelets 95K, hgb 11.4 -Likely due to underlying malignancy -Monitor CBC (9) Elevated LFTs: -AST 64, alk phos 235 -Likely due to underlying malignancy -Hold gemfibrozil, monitor LFTs (10) HTN (hypertension): -BP controlled, continue lisinopril -Hold HCTZ due to hyponatremia (11) HLD (hyperlipidemia): -Holding gemfibrozil as above (12) DVT prophylaxis: Lovenox SQ Monitor Platelets Total Time Total Time Spent Total Time Spent (In Minutes): 45 Total Time Includes: Examination of the Patient, Discharge Planning, Medication Reconciliation and Communication With Other Providers Discharge Plan Discharge Items Patient Disposition: Home - Self-Care Reason For Visit: INTRACTABLE PAIN, MALIGNANCY Discharge Diagnosis: (1) Intractable back pain: (2) Pathologic rib fracture: (3) Pathologic thoracic fracture: (4) Metastatic adenocarcinoma: Condition on Discharge: Fair Health Concerns: Pain cintrol Activity: Resume your previous activity Lifting: Gradually increase as tolerated Bathing: No limitations Sexual Activity: When tolerated Exercise/Sports: Gradually increase as tolerated Driving/Machine Use: No limitations Weightbearing: Full weightbearing Non-emergency contact: Primary Care Provider and Oncologist Call non-emergency contact if: you have any medication questions and your symptoms worsen Follow-up/Referrals: Sunny Mckeon MD [Physician] - Brayan Mckeon MD [Primary Care Provider] - Diet: Regular Addtl Attending Provider Instructions: none Pending Studies at Discharge: No Studies:: Will receive 1 fraction of XRT prior to DC Stand-Alone Forms: [facility] [employer], Opioid Pain Management, Smoking Cessation Medications and DC Order Prescriptions: New acetaminophen 325 mg Tablet 650 mg PO Q4H PRN (Reason: fever or pain) Qty: 90 RF: 0 fentanyl 25 mcg/hr Patch 72 Hour 25 mcg transdermal Q3D@0900 Qty: 10 RF: 0 polyethylene glycol 3350 [Miralax] 17 gram Powder In Packet 17 g PO DAILY PRN (Reason: constipation) Qty: 30 RF: 0 lidocaine 5 % Adhesive Patch,Medicated 1 patch transdermal QAM Qty: 30 RF: 0 oxycodone 5 mg Tablet 5 - 10 mg PO Q4H PRN (Reason: pain) Qty: 90 RF: 0 Continued aspirin 81 mg Tablet,Delayed Release (Dr/Ec) 81 mg PO QAM RF: 0 citalopram 20 mg tablet 20 mg PO QAM RF: 0 lisinopril-hydrochlorothiazide 20-25 mg tablet 1 tab PO QAM RF: 0 gemfibrozil 600 mg Tablet 600 mg PO BID RF: 0 cyclobenzaprine 10 mg Tablet 10 mg PO TID PRN (Reason: Pain) RF: 0 omeprazole 20 mg Capsule,Delayed Release(Dr/Ec) 20 mg PO DAILY PRN (Reason: Heartburn) RF: 0 docusate sodium 100 mg Tablet 100 mg PO BID RF: 0 senna 8.6 mg Capsule 8.6 mg PO DAILY RF: 0 oxycodone 10 mg Tablet 10 mg PO Q6H PRN (Reason: Pain) RF: 0 pantoprazole 40 mg tablet,delayed release (DR/EC) 40 mg PO BID RF: 0 Discharge Orders: Discharge Order (Routine); Ordered 02/23/21 Ordered By: Wilner Hernandez/Other Patient Handouts: A1C Admission Data Admit Date/Time: 02/21/21 17:49 Attending Provider: Wilner Condon Admit Provider: Yunior Melton Primary Care Provider: Brayan Mckeon Other Providers: Yunior Melton ; Chalo Rich ; Sunny Mckeon
[2021-02-23] MEDS: SODIUM CHLORIDE 0.9% 1000ML 1,000 ML IV SCH ×2 (14:07→20:00)
[2021-02-24] MEDS: HYDROmorphone INJ 1 MG/ML SYRINGE IV PRN ×8 (00:06→15:45)
[2021-02-24] MEDS: CHECK fentaNYL PATCH PLACEMENT SCH ×2 (00:07→08:59)
[2021-02-24] MEDS: oxyCODONE HCL IR 5 MG TAB (IMMEDIATE RELEASE) PO PRN ×3 (01:17→16:37)
[2021-02-24 07:38] VITALS: PULSE 78; TEMP 98.2; O2SAT 94
[2021-02-24] MEDS: ASPIRIN 81 MG ECTAB PO SCH (07:44)
[2021-02-24] MEDS: DOCUSATE SODIUM 100 MG CAP PO SCH (07:44)
[2021-02-24] MEDS: CITALOPRAM 20 MG TAB PO SCH (07:44)
[2021-02-24] MEDS: lisinopril 20 MG TAB PO SCH (07:45)
[2021-02-24] MEDS: LIDOCAINE 5% 1 PATCH TD SCH (07:45)
[2021-02-24] MEDS: SENNA 8.6 MG TAB PO SCH (07:45)
[2021-02-24] MEDS: ENOXAPARIN INJ 40 MG/0.4 ML SYR SQ SCH (07:45)
[2021-02-24] MEDS: PANTOprazole 40 MG TAB PO SCH (07:46)
[2021-02-24] MEDS: SODIUM CHLORIDE 0.9% 1000ML 1,000 ML IV SCH (08:59)
[2021-02-24] MEDS ORDERED: LIDOCAINE 5% 1 PATCH TD SCH (11:45)
[2021-02-24 15:28] VITALS: BP 128/77
== END 2021-02-24 17:00 | disposition home or self-care (01) ==
LOC: ED 16:07 → 3W 16:07 → SUATTDRO 17:49 → 3W 20:03